=== PATIENT | female | born 1940 | race Caucasian/White ===

== ENCOUNTER 2025-02-28 21:50 | Inpatient (IN) ==
--- NOTE | 2025-02-28 22:15 | Emergency Department Note ---
Impression & Plan Babesiosis, Generalized weakness, Fever ED Provider Note CHIEF COMPLAINT: "I think she has a UTI" HISTORY OF PRESENT ILLNESS: This 84-year-old female patient with PMH pneumonia, thrombocytopenia, nonalcoholic cirrhosis, SHARRON, dementia, presents to the emergency department via private vehicle accompanied by who provides history. The patient woke up this morning and has been very fatigued throughout the day. Patient's states that she had some water this morning that she threw up. He notes at lunchtime, she was not hungry and she has been sleeping throughout most of the day. He states that she has not had anything to eat or really much to drink throughout the day. She did tried some dinner but ate only a small amount. He states that her urine is very concentrated and dark and he is concerned she may have a urinary tract infection. Patient denies any abdominal or back pain. She denies any current symptoms, though does have a history of dementia at baseline. Patient does have a history of CHF and is currently on furosemide. 2 days ago, she did fall and landed on her left knee which is very bruised. Patient's states he believes she fell out of bed because the bed was elevated. Patient had a fever of 100.8 F this evening. She has not had diarrhea or constipation. No congestion or runny nose. She has had a cough since pneumonia in December. She is also on 2 L of oxygen at all times since she was ill with pneumonia in December of this year. History provided by: Patient's REVIEW OF SYSTEMS: A 10 system review of systems was performed with positives and pertinent negatives listed in the history of present illness. All other systems were reviewed and are negative. ALLERGIES: Penicillin, latex PHYSICAL EXAM: VITALS: Vitals are noted on the nurse's note and reviewed by myself. GENERAL: This is a 84-year-old female, in no acute distress, nondiaphoretic, well-developed well-nourished. SKIN: Ecchymosis of the anterior left knee with tenderness to palpation. The skin was otherwise without rashes, erythema, edema, or bruising. There is no tenting of the skin. Capillary refill less than 2 seconds. HEAD: Normocephalic atraumatic. EARS: External auditory canals clear, tympanic membranes pearly cummings without erythema or effusion bilaterally. No hemotympanum. Negative clarke sign EYES: Pupils equal round and reactive to light and accommodation. Conjunctivae without injection, sclerae without icterus. Extraocular movements intact. NOSE: Patent, turbinates without inflammation or discharge. No sinus tenderness. MOUTH: Mucous membranes moist. Tonsils are not enlarged. Pharynx without erythema or exudate. Uvula midline. Airway patent. Tongue does not deviate. NECK: Supple without nuchal rigidity. No lymphadenopathy. Cervical spine is nontender. No JVD. HEART: Regular rate and rhythm without murmurs gallops or rubs. LUNGS: Clear to auscultation bilaterally without wheezes, rales or rhonchi. No retractions or accessory muscle use. ABDOMEN: Positive bowel sounds x 4. Soft, nontender, without masses or organomegaly. Pichardo sign negative. No guarding or rebound tenderness. MUSCULOSKELETAL: No muscle atrophy, erythema, or edema noted. Full range of motion without joint tenderness in all extremities. No tenderness to palpation. Normal gait. Strength 5/5 throughout. NEURO: Patient was alert and oriented to person place and time. Normal sensation to light and sharp touch. Deep tendon reflexes 2+ throughout. No focal neurological deficits. An order was placed for continuous threat monitoring analyst. The monitor showed a normal sinus rhythm at a ventricular rate of 89 bpm, per my interpretation. EKG was reviewed by myself and found to be normal sinus rhythm at a rate of 80 beats per minute and per my interpretation reveals no ST elevation or depression. Right bundle branch block. And when compared to previous EKG of 12/24/2024 is without significant change Imaging as interpreted by myself and the radiologist revealed no acute findings, with radiologist interpretation as above. I agree with the radiologist's findings as based upon my independent interpretation. EMERGENCY DEPARTMENT COURSE: The patient was evaluated as above. The patient presents to the emergency department due to concern for possible urinary tract infection. The patient has not had much to eat or drink throughout the day and has not was concerned the urine was concentrated. The patient did had a fever prior to arrival of 100.8 F. Upon arrival, the patient was noted to be hypoxic. She has been on oxygen since diagnosis of pneumonia in December. Patient was afebrile upon arrival. IV access was obtained, labs were drawn. Patient was hydrated with IV fluids. Labs reviewed. Per my interpretation, no concerning leukocytosis. The patient does have a leukopenia of 4.51. Hemoglobin of 9.8 and platelet count of 63,000. This is lower than patient's baseline. I was contacted by the lab that there were suspicions for Babesia on CBC and recommendation made for tick smear and corresponding testing be ordered. Renal, hepatic function and electrolytes without significant abnormality. Troponin is mildly elevated at 15.5. Lactic acid elevated at 3.5. Procalcitonin 0.28. Lipase is 20. Urinalysis with positive leukocyte esterase and bacteria, but does appear to be contaminated specimen. X-rays of the chest as well as the left knee were completed and reviewed by myself radiologist as noted. No acute fracture. No clear evidence of pneumonia. The patient was medicated with IV azithromycin, ceftriaxone, and atovaquone given concern for Babesia, but also to cover for possible respiratory and urine pathogens. Will trend cultures. The patient will be admitted to the [facility] service. Please see hospitalist dictation regarding ongoing management and final disposition of this patient. Case was discussed with the attending physician. I attest that I have personally reviewed the patient medication list. I attest that I have reviewed the patient's blood pressure and it was found to be normal GCS: 15 In the evaluation and treatment of this patient the following differential diagnoses were entertained: Viral syndrome, otitis, pharyngitis, pneumonia, influenza, meningitis, urinary tract infection, sepsis, bacteremia, as well as other pathologies. The chart was completed utilizing [employer] Speech voice recognition software. Grammatical errors, random word insertions, pronoun errors, and incomplete sentences are an occasional consequence of this system due to software limitations, ambient noise, and hardware issues. Any formal questions or concerns about the content, text, or information contained within the body of this dictation should be directly addressed to the provider for clarification. 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 yearly CBC Hyperlipidemia Elevated LFTs Hypothyroid Medical History Type 2 diabetes mellitus Essential thrombocytopenia follows with hematology. yearly CBC Edema of both legs History of COVID-19 History of esophageal dilatation Hx of fall (09/2023) Comminuted fracture of the left humeral head Hyperlipidemia Hypertension denies History of shoulder fracture (09/2023) left- (no surgery/moderate rom) Comminuted fracture of the left humeral head from a fall Arthritis mild Frequent UTI Cirrhosis, non-alcoholic Dysphagia reason for procedure Sleep apnea no device used Hypothyroidism Diabetes mellitus, type 2 Surgical History History of anesthesia reaction slow to wake up History of esophagogastroduodenoscopy (EGD) History of colonoscopy History of tooth extraction (05/29/24) all upper teeth removed week of 05/29/24 History of cataract surgery b/l Hx of cholecystectomy History of knee replacement left Family History Mother Diabetes Grandfather No problems noted. Grandmother Diabetes Denies family history of Ovarian cancer Prostate cancer Myocardial infarction Breast cancer Colorectal cancer Hypertension Social History Smoking Status: Never smoker Second Hand Exposure: No; Do You Dip or Chew Tobacco: No; Hx Alcohol Use: No Hx Substance Use: No Preferred Language: Syriac Communication Ability: Effective Visual Impairment: Limited Hearing Ability: Hard of Hearing Quality Control Microbiology Supervisor Required: No Beliefs That Will Affect Care: None marital status: marital status details: Spouse and son Current Living Situation: Spouse current occupational status: retired How many Children do You have: 3 Feels Safe at Home: Yes Childhood Exposure to Second-Hand Smoke: Yes Diet: regular caffeine: Yes during the past year weight has: remained stable Dental Care, Regularly: Yes Physical Activity Frequency: Does not Exercise Seatbelt Use: always Sunscreen Use: No Do you think of yourself as: straight/heterosexual Sexual Activity: has been sexually active, but not for at least 12 months Gender Identity: Female Assistive Devices: Cane Allergies Allergies Allergy/AdvReac Type Severity Reaction Status Date / Time Penicillins Allergy Intermediate unsure of Verified 02/27/25 10:25 reaction/been a long time latex Allergy Mild skin Verified 02/27/25 10:25 sensitive Home Meds Home Medications Medication Instructions Recorded Confirmed metformin 500 mg tablet 500 mg PO BID 03/02/24 02/28/25 aspirin 81 mg tablet,delayed 81 mg PO QAM 05/16/24 02/28/25 release multivitamin 1 tab PO QAM 06/06/24 02/28/25 omeprazole 40 mg capsule,delayed 40 mg PO QAM 06/06/24 02/28/25 release levothyroxine 50 mcg tablet 50 mcg PO UD 12/24/24 02/28/25 memantine 10 mg tablet 10 mg PO AMHS 02/28/25 02/28/25 Previous Rx's Medication Instructions Recorded lancets 33 gauge (OneTouch Delica #100 ea 05/16/24 Plus Lancet) blood sugar diagnostic (OneTouch #100 ea 05/17/24 Ultra Test strips) pen needle, diabetic 32 gauge x #200 ea 09/18/24/32" (BD Ultra-Fine Ricarda Pen Needle) atorvastatin 40 mg tablet 40 mg PO HS #90 tabs 10/11/24 insulin aspar prot-insulin aspart 42 unit (0.42 mL) subcut BID #30 mL 10/11/24 100 unit/mL (70-30) subcutaneous pen (Novolog Mix 70-30FlexPen U-100) Oxygen Home #1 ea 01/15/25 furosemide 40 mg tablet (Lasix) 20 mg (1/2 x 40 mg) PO DAILY #15 02/27/25 tabs spironolactone 25 mg tablet 25 mg PO DAILY #30 tabs 02/27/25 Results & Data (ED) Vital Signs Vital Signs - 24 hr 02/28/25 21:52 02/28/25 22:03 02/28/25 22:05 Temperature 36.9 C Temperature Source Oral Pulse Rate 89 81 82 Pulse Rate from SpO2 Sensor 82 Respiratory Rate 20 22 Respiratory Effort / Characteristics Non-Labored Spontaneous Respiratory Depth Normal Respiratory Pattern Regular Blood Pressure 128/74 Blood Pressure Mean 92 Pulse Oximetry 89 L 93 Oxygen Delivery Method Room Air Oxygen Flow Rate Sepsis Recent Fever Within 48 Hours Yes Sepsis New/Unexplained Change in Mental Status N/A Sepsis Action Taken by Nursing No Action Required 02/28/25 22:30 02/28/25 22:42 02/28/25 22:48 Temperature Temperature Source Pulse Rate 83 80 78 Pulse Rate from SpO2 Sensor 84 81 77 Respiratory Rate 17 23 21 Respiratory Effort / Characteristics Respiratory Depth Respiratory Pattern Blood Pressure Blood Pressure Mean Pulse Oximetry 95 94 95 Oxygen Delivery Method Oxygen Flow Rate Sepsis Recent Fever Within 48 Hours Sepsis New/Unexplained Change in Mental Status Sepsis Action Taken by Nursing 02/28/25 23:35 02/28/25 23:35 02/28/25 23:36 Temperature Temperature Source Pulse Rate 79 Pulse Rate from SpO2 Sensor 79 Respiratory Rate 21 Respiratory Effort / Characteristics Respiratory Depth Respiratory Pattern Blood Pressure 141/62 H 141/62 H Blood Pressure Mean 100 100 Pulse Oximetry 95 Oxygen Delivery Method Oxygen Flow Rate Sepsis Recent Fever Within 48 Hours Sepsis New/Unexplained Change in Mental Status Sepsis Action Taken by Nursing 03/01/25 00:12 03/01/25 00:27 03/01/25 00:48 Temperature Temperature Source Pulse Rate 83 84 Pulse Rate from SpO2 Sensor Respiratory Rate 23 23 Respiratory Effort / Characteristics Respiratory Depth Respiratory Pattern Blood Pressure 167/80 H 167/80 H 148/69 H Blood Pressure Mean 109 121 95 Pulse Oximetry 95 95 Oxygen Delivery Method Nasal Cannula Nasal Cannula Oxygen Flow Rate 2 2 Sepsis Recent Fever Within 48 Hours Sepsis New/Unexplained Change in Mental Status Sepsis Action Taken by Nursing Laboratory Data 02/28/25 22:11 02/28/25 22:11 Lab Results 02/28/25 02/28/25 03/01/25 Range/Units 22:11 22:17 00:24 WBC 4.51 L (4.8-10.8) K/ul RBC 3.35 L (4.20-5.40) M/uL Hgb 9.8 L (12.0-16.0) g/dl Hct 31.9 L (37.0-47.0) % MCV 95.2 (80.0-100.0) fL MCH 29.3 (25.0-34.0) pg MCHC 30.7 L (32.0-36.0) g/dL RDW Std Deviation 71.4 H (36.4-46.3) fL RDW Coeff of Arsen 20.5 H (11.5-14.5) % Plt Count 63 L (130-400) K/uL MPV 11.6 (9.4-12.4) fL Immature Gran % (Auto) 0.7 % Neut % (Auto) 54.3 % Lymph % (Auto) 28.4 % [place] % (Auto) 14.6 % Eos % (Auto) 1.3 % Baso % (Auto) 0.7 % Neut # (Auto) 2.45 (1.40-6.50) K/uL Lymph # (Auto) 1.28 (1.20-3.40) K/uL [place] # (Auto) 0.66 H (0.11-0.59) K/uL Eos # (Auto) 0.06 (0.00-0.50) K/uL Baso # (Auto) 0.03 (0.00-0.20) K/uL Immature Gran # (Auto) 0.03 (0.01-0.20) K/uL Anisocytosis Present PT 12.1 H (9.0-12.0) Seconds INR 1.1 (0.9-1.1) Sodium 136 (136-145) mmol/L Potassium 3.8 (3.5-5.1) mmol/L Chloride 101 (98-107) mmol/L Carbon Dioxide 29 (21-32) mmol/L Anion Gap 6 (3-11) BUN 17 (6-23) mg/dl Creatinine 1.08 (0.6-1.2) mg/dl Est Cr Clr Drug Dosing Not Reportable eGFR 51.29 BUN/Creatinine Ratio 15.7 (10-20) Glucose 243 H (70-99(Fasting)) mg/dl Lactate 3.5 H* (0.4-2.0) mmol/L Calcium 8.6 (8.6-10.3) mg/dl Total Bilirubin 2.3 H (0.2-1.0) mg/dl AST 36 (13-39) U/L ALT 17 (7-52) U/L Alkaline Phosphatase 82 (34-104) U/L Troponin I High Sens 15.5 H (0-14) pg/ml Total Protein 6.4 (6.0-8.3) gm/dl Albumin 2.9 L (3.4-5.0) gm/dl Globulin 3.5 (2.5-4.0) gm/dl Albumin/Globulin Ratio 0.8 L (0.9-2) Lipase 20 (11-82) U/L Procalcitonin 0.28 (0-0.5) ng/ml Urine Color Dark Yellow Urine Appearance Clear (Clear) Urine pH 5.5 (4.5-7.5) Ur Specific [place] 1.022 (1.000-1.030) Urine Protein Trace H (Negative) Urine Glucose (UA) Negative (Negative) Urine Ketones Trace H (Negative) Urine Blood Negative (Negative) Urine Nitrite Negative (Negative) Urine Bilirubin 1+ H (Negative) Urine Urobilinogen Positive H (Negative) Ur Leukocyte Esterase 1+ H (Negative) Urine WBC (Auto) 0-5 (0-5) /hpf Urine RBC (Auto) 0-2 (0-2) /hpf U Hyaline Cast (Auto) 0-2 (0-2) /lpf U Epithel Cells (Auto) 11-20 H (0-2) /hpf Urine Bacteria (Auto) 1+ H (None Seen) Urine Comment Adenovirus (PCR) Not Detected (NotDetected) Anaplasma Smear See Comment Babesia Smear See Comment A B. pertussis DNA (PCR) Not Detected (NotDetected) B.parapertussis DNA PCR Not Detected (NotDetected) Lyme Disease Screen Negative (Negative) C. pneumoniae DNA (PCR) Not Detected (NotDetected) Coronavirus OC43 (PCR) Not Detected (NotDetected) Coronavirus HKU1 (PCR) Not Detected (NotDetected) Coronavirus 229E (PCR) Not Detected (NotDetected) SARS-CoV-2 (PCR) Not Detected (NotDetected) Coronavirus NL63 (PCR) Not Detected (NotDetected) Human Metapneumovir PCR Not Detected (NotDetected) Influenza Type A (PCR) Not Detected (NotDetected) Influenza Type B (PCR) Not Detected (NotDetected) M. pneumoniae (PCR) Not Detected (NotDetected) Parainfluenza 1 (PCR) Not Detected (NotDetected) Parainfluenza 2 (PCR) Not Detected (NotDetected) Parainfluenza 3 (PCR) Not Detected (NotDetected) Parainfluenza 4 (PCR) Not Detected (NotDetected) RSV (PCR) Not Detected (NotDetected) Entero/Rhino (PCR) Not Detected (NotDetected) Administered Medications Discontinued Medications Atovaquone (Atovaquone 750 Mg/5 Ml Udc) 750 mg PO NOW STA Stop: 03/01/25 00:12 Last Admin: 03/01/25 01:41 Dose: 750 mg Documented By: DEANNE Sodium Chloride (Nss) 1,000 mls @ 999 mls/hr IV .Q1H1M ONE Stop: 02/28/25 23:07 Last Infusion: 03/01/25 01:25 Dose: Infused Documented By: Admin: 02/28/25 22:39 Dose: 999 mls/hr Documented By: JAE Azithromycin (Zithromax) 500 mg in 255 mls @ 127.5 mls/hr IV NOW ONE Stop: 03/01/25 02:10 Last Admin: 03/01/25 02:25 Dose: 127.5 mls/hr Documented By: DEANNE Ceftriaxone Sodium (Rocephin) 1,000 mg in 50 mls @ 100 mls/hr IV NOW STA Stop: 03/01/25 00:40 Last Infusion: 03/01/25 02:30 Dose: Infused Documented By: Admin: 03/01/25 01:41 Dose: 100 mls/hr Documented By: DEANNE Imaging Data Radiologist's Impression: Knee X-Ray 02/28/25 22:07 Exam(s): XR LEFT KNEE, 3 views EXAM: XR Left Knee, 3 Views CLINICAL HISTORY: Reason for exam: left knee pain/bruising, fall. TECHNIQUE: Three views of the left knee. COMPARISON: No relevant prior studies available. FINDINGS: Bones/joints: The patient is status post total knee replacement. No acute fracture. No dislocation. Soft tissues: There is a small knee joint effusion. Vascular calcifications are seen. IMPRESSION: Status post total knee replacement. There is a small knee joint effusion. . Electronically signed by: Star Zuniga MD 03/01/25 00:05 AM Chest X-Ray 02/28/25 22:08 Exam(s): XR CXR 1 VIEW EXAM: XR Chest, 1 View CLINICAL HISTORY: Reason for exam: Fever. TECHNIQUE: Frontal view of the chest. COMPARISON: 02/20/2025. FINDINGS: There is a poor inspiratory effort. The exam is further limited due to patient's body habitus. Lungs: There is prominence of the interstitial markings.. Pleural space: No pleural effusion is seen. No pneumothorax. Heart: The heart is top normal in size.. Mediastinum: There is mild uncoiling of thoracic aorta.. Bones/joints: There are degenerative changes in the shoulders and the spine.. IMPRESSION: Limited exam. There is prominence of the interstitial markings which appears chronic in nature. Findings appears similar to previous exam. Electronically signed by: Star Zuniga MD 03/01/25 00:14 AM Discharge Plan Visit Data Chief Complaint: Fever Stated Complaint: FEVER ED Provider: Kalia Saucedo ED Midlevel Provider: Casie Cabral Discharge Problem: Babesiosis, Generalized weakness, Fever Patient Disposition: Admitted As Inpatient Condition: Good Discharge Instructions Interventions: ED Discharge Assessment Last Done: 03/01/25 01:52
[2025-02-28] MEDS: SODIUM CHLORIDE 0.9% 1,000 ML IV ONE (22:39)
[2025-02-28 22:56] LABS: Alanine Aminotransferase 17 U/L (7-52); Albumin Globulin Ratio 0.8 (0.9-2); Alkaline Phosphatase 82 U/L (34-104); Anion Gap 6 (3-11); Bilirubin,Total 2.3 mg/dl (0.2-1.0); Blood Urea Nitrogen 17 mg/dl (6-23); Calcium 8.6 mg/dl (8.6-10.3); Carbon Dioxide 29 mmol/L (21-32); Chloride 101 mmol/L (98-107); Globulin 3.5 gm/dl (2.5-4.0); Glucose 243 mg/dl (70-99(Fasting)); Lipase 20 U/L (11-82); Potassium 3.8 mmol/L (3.5-5.1); Sodium 136 mmol/L (136-145); Total Protein 6.4 gm/dl (6.0-8.3)
[2025-02-28 23:20] LABS: Chlamydia pneumoniae PCR Not Detected (NotDetected); Coronavirus 229E PCR Not Detected (NotDetected); Coronavirus CoV-2 (COVID19)PCR Not Detected (NotDetected); Coronavirus HKU1 PCR Not Detected (NotDetected); Coronavirus NL63 PCR Not Detected (NotDetected); Coronavirus OC43PCR Not Detected (NotDetected); Human Metapneumovirus PCR Not Detected (NotDetected); Parainfluenza Virus 1 PCR Not Detected (NotDetected); Parainfluenza Virus 2 PCR Not Detected (NotDetected); Parainfluenza Virus 3 PCR Not Detected (NotDetected); Parainfluenza Virus 4 PCR Not Detected (NotDetected); Respiratory Syncytial VirusPCR Not Detected (NotDetected); Rhinovirus/Enterovirus PCR Not Detected (NotDetected)
[2025-02-28 23:22] LABS: Hematocrit (blood only) 31.9 % (37.0-47.0); Hemoglobin 9.8 g/dl (12.0-16.0); Mean Corpuscular Hemoglobin 29.3 pg (25.0-34.0); Mean Corpuscular Volume 95.2 fL (80.0-100.0); Platelet Count 63 K/uL (130-400); RDW Standard Deviation 71.4 fL (36.4-46.3); Red Blood Count 3.35 M/uL (4.20-5.40); White Blood Count 4.51 K/ul (4.8-10.8)
[2025-02-28 23:31] LABS: INR 1.1 (0.9-1.1); Prothrombin Time 12.1 Seconds (9.0-12.0)
[2025-02-28 23:40] LABS: Anisocytosis Present; Immature Granulocytes # (auto) 0.03 K/uL (0.01-0.20); Immature Granulocytes % (auto) 0.7 %
--- NOTE | 2025-03-01 00:06 | XRay Report ---
Exam(s): XR LEFT KNEE, 3 views EXAM: XR Left Knee, 3 Views CLINICAL HISTORY: Reason for exam: left knee pain/bruising, fall. TECHNIQUE: Three views of the left knee. COMPARISON: No relevant prior studies available. FINDINGS: Bones/joints: The patient is status post total knee replacement. No acute fracture. No dislocation. Soft tissues: There is a small knee joint effusion. Vascular calcifications are seen. IMPRESSION: Status post total knee replacement. There is a small knee joint effusion. . Electronically signed by: Star Zuniga MD 03/01/25 00:05 AM
--- NOTE | 2025-03-01 00:16 | XRay Report ---
Exam(s): XR CXR 1 VIEW EXAM: XR Chest, 1 View CLINICAL HISTORY: Reason for exam: Fever. TECHNIQUE: Frontal view of the chest. COMPARISON: 02/20/2025. FINDINGS: There is a poor inspiratory effort. The exam is further limited due to patient's body habitus. Lungs: There is prominence of the interstitial markings.. Pleural space: No pleural effusion is seen. No pneumothorax. Heart: The heart is top normal in size.. Mediastinum: There is mild uncoiling of thoracic aorta.. Bones/joints: There are degenerative changes in the shoulders and the spine.. IMPRESSION: Limited exam. There is prominence of the interstitial markings which appears chronic in nature. Findings appears similar to previous exam. Electronically signed by: Star Zuniga MD 03/01/25 00:14 AM
[2025-03-01 00:35] LABS: Appearance Urine Clear (Clear); Bacteria Urine Automated 1+ (None Seen); Cast Urine Automated 0-2 /lpf (0-2); Glucose Urine UA Negative (Negative); RBC Urine Automated 0-2 /hpf (0-2); WBC Urine Automated 0-5 /hpf (0-5)
--- NOTE | 2025-03-01 01:02 | History & Physical Report ---
Date of Service March 01, 2025 Assessment & Plan (1) Babesiosis: (2) Generalized weakness: (3) Dementia: (4) Gait instability: (5) Type 2 diabetes mellitus: Plan The patient is an 84-year-old female with a past medical history including gait instability, lower extremity edema, SHARRON, history of falls, nonalcoholic cirrhosis, essential thrombocythemia, hyperlipidemia, and hypothyroidism. The patient presents to the emergency department brought in by her in private vehicle. The patient has been very fatigued throughout the day after waking up at a routine time in the morning. He has had difficulty getting her to drink or eat anything, and reports that after she had some water in the morning she threw it up. He reports that she sleeps a lot generally, but slightly more than usual throughout the day today. He notes that her urine is very concentrated and dark, and is concerned he she has a urinary tract infection. The provides most of the HPI and ROS. He reports that she has been more fatigued over the past months. He reports that she is also a bit more confused than usual today. He reports that she had a temperature of 100.8 F at home this evening. She is usually on 2 L of oxygen, since she had been in the hospital from 12/24-12/29/2024 where she was treated for sepsis due to multifocal pneumonia, and enterovirus/rhinovirus infection. She was in [facility] for re[facility] from 12/29-01/14/2025 Babesiosis- Babesiosis smear positive, with antibodies ordered and pending Anaplasmosis smear negative, with antibodies ordered and pending Lyme antibody test negative Ehrlichiosis antibodies pending BioFire respiratory panel negative reports that [place], but are not aware of any tick bites. 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 Ceftriaxone 2 g IV daily, this is added to patient's regimen to help cover possible anaplasmosis, as her had this a few months ago, and her antibody tests are ordered and pending Azithromycin 500 mg IV daily Mepron 750 mg p.o. twice daily The azithromycin and Mepron are chosen specifically to treat babesiosis. Patient is status post 1 L normal saline bolus in the ED Placed on normal saline with KCl 20 mEq at 100 mL/h x 2 L Follow serial CBC with differential, renal function panel and magnesium levels Diabetes mellitus- Glucose 243 on admission Hold NovoLog Mix Placed on Accu-Cheks NovoLog SSI as noted Hold metformin She has had significantly decreased oral intake over the past few months Dehydration- Hold furosemide and spironolactone Status post 1 L normal saline bolus in the ED NSS + KCl 20 mill equivalents at 100 mL/h x 2 L Follow serial labs as noted Chronic hypoxia- reports that she has required oxygen since her hospitalization from 12/24- 12/29/2024 for pneumonia He also reports that she has been fatigued since that time She did undergo rehab at [facility] from 12/29-01/14/2025 Would consult PT/OT when patient is a bit stronger, as would not be surprised if she needs to go to inpatient rehab again after discharge from the hospital Elevated troponin- EKG normal Continue aspirin Initial troponin 15.5 with follow-up pending Not likely a primary cardiac issue Hyperlipidemia- Continue atorvastatin GERD- Continue omeprazole/pantoprazole Hypothyroidism- Continue levothyroxine Dementia- Continue aspirin, and memantine Resuscitation status: DNR/DNI History of Present Illness Chief Complaint: The patient presents to the emergency department brought in by her in private vehicle. The patient has been very fatigued throughout the day after waking up at a routine time in the morning. He has had difficulty getting her to drink or eat anything, and reports that after she had some water in the mo rning she threw it up. He reports that she sleeps a lot generally, but slightly more than usual throughout the day today. He notes that her urine is very concentrated and dark, and is concerned he she has a urinary tract infection. The provides most of the HPI and ROS. He reports that she has been more fatigued over the past months. He reports that she is also a bit more confused than usual today. He reports that she had a temperature of 100.8 F at home this evening. She is usually on 2 L of oxygen, since she had been in the hospital from 12/24-12/29/2024 where she was treated for sepsis due to multifocal pneumonia, and enterovirus/rhinovirus infection. She was in [facility] for rehab from 12/29-01/14/2025 Primary Care Provider: DEVAUGHN Choi The patient is an 84-year-old female with a past medical history including gait instability, lower extremity edema, SHARRON, history of falls, nonalcoholic cirrhosis, essential thrombocythemia, hyperlipidemia, and hypothyroidism. The patient presents to the emergency department brought in by her in private vehicle. The patient has been very fatigued throughout the day after waking up at a routine time in the morning. He has had difficulty getting her to drink or eat anything, and reports that after she had some water in the morning she threw it up. He reports that she sleeps a lot generally, but slightly more than usual throughout the day today. He notes that her urine is very concentrated and dark, and is concerned he she has a urinary tract infection. The provides most of the HPI and ROS. He reports that she has been more fatigued over the past months. He reports that she is also a bit more confused than usual today. He reports that she had a temperature of 100.8 F at home this evening. She is usually on 2 L of oxygen, since she had been in the hospital from 12/24-12/29/2024 where she was treated for sepsis due to multifocal pneumonia, and enterovirus/rhinovirus infection. She was in [facility] for rehab from 12/29-01/14/2025 Allergies Allergy/AdvReac Type Severity Reaction Status Date / Time Penicillins Allergy Intermediate unsure of Verified 02/27/25 10:25 reaction/been a long time latex Allergy Mild skin Verified 02/27/25 10:25 sensitive Home Medications Medication Instructions Recorded Confirmed Type metformin 500 mg tablet 500 mg PO BID 03/02/24 02/28/25 History aspirin 81 mg tablet,delayed 81 mg PO QAM 05/16/24 02/28/25 History release lancets 33 gauge (OneTouch Delica #100 ea 05/16/24 02/28/25 Rx Plus Lancet) blood sugar diagnostic (OneTouch #100 ea 05/17/24 02/28/25 Rx Ultra Test strips) multivitamin 1 tab PO QAM 06/06/24 02/28/25 History omeprazole 40 mg capsule,delayed 40 mg PO QAM 06/06/24 02/28/25 History release pen needle, diabetic 32 gauge x #200 ea 09/18/24 02/28/25 Rx 5/32" (BD Ultra-Fine Ricarda Pen Needle) atorvastatin 40 mg tablet 40 mg PO HS #90 tabs 10/11/24 02/28/25 Rx insulin aspar prot-insulin aspart 42 unit (0.42 mL) subcut BID #30 mL 10/11/24 02/28/25 Rx 100 unit/mL (70-30) subcutaneous pen (Novolog Mix 70-30FlexPen U-100) levothyroxine 50 mcg tablet 50 mcg PO UD 12/24/24 02/28/25 History Oxygen Home #1 ea 01/15/25 02/28/25 Rx furosemide 40 mg tablet (Lasix) 20 mg (1/2 x 40 mg) PO DAILY #15 02/27/25 02/28/25 Rx tabs spironolactone 25 mg tablet 25 mg PO DAILY #30 tabs 02/27/25 02/28/25 Rx memantine 10 mg tablet 10 mg PO AMHS 02/28/25 02/28/25 History Past Med/Surg History Problem List (Updated 03/01/25 @ 02:51 by Santy Roman MD) Generalized weakness Babesiosis Dementia Memory loss Gait instability Shortness of breath Pancytopenia Acute respiratory failure with hypoxia Rhinovirus (Acute) Sepsis Multifocal pneumonia Hypomagnesemia (Acute) Edema of both legs SHARRON (obstructive sleep apnea) Abnormal CT scan, esophagus Closed fracture of left proximal humerus (09/29/23) Comminuted fracture of the left humeral head from a fall History of fall Cirrhosis, nonalcoholic Essential thrombocythemia follows with hematology. yearly CBC Hyperlipidemia Elevated LFTs Hypothyroid Medical History (Updated 03/01/25 @ 02:51 by Santy Roman MD) Type 2 diabetes mellitus Essential thrombocytopenia follows with hematology. yearly CBC Edema of both legs History of COVID-19 History of esophageal dilatation Hx of fall (09/2023) Comminuted fracture of the left humeral head Hyperlipidemia Hypertension denies History of shoulder fracture (09/2023) left- (no surgery/moderate rom) Comminuted fracture of the left humeral head from a fall Arthritis mild Frequent UTI Cirrhosis, non-alcoholic Dysphagia reason for procedure Sleep apnea no device used Hypothyroidism Diabetes mellitus, type 2 Surgical History History of anesthesia reaction slow to wake up History of esophagogastroduodenoscopy (EGD) History of colonoscopy History of tooth extraction (05/29/24) all upper teeth removed week of 05/29/24 History of cataract surgery b/l Hx of cholecystectomy History of knee replacement left Family History Mother Diabetes Grandfather No problems noted. 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 Required: No Beliefs That Will Affect Care: None marital status: marital status details: Spouse and son Current Living Situation: Spouse current occupational status: retired How many Children do You have: 3 Feels Safe at Home: Yes Childhood Exposure to Second-Hand Smoke: Yes Diet: regular caffeine: Yes during the past year weight has: remained stable Dental Care, Regularly: Yes Physical Activity Frequency: Does not Exercise Seatbelt Use: always Sunscreen Use: No Do you think of yourself as: straight/heterosexual Sexual Activity: has been sexually active, but not for at least 12 months Gender Identity: Female Assistive Devices: Cane Review of Systems Review of Systems: Review of systems in HPI primarily provided by her , who brought her to the emergency department night and is in attendance during the examination. Physical Exam Physical Exam: The patient is awake, lethargic, well developed and well nourished, normocephalic and atraumatic, lying in bed and in no acute distress. HEENT--PERRL, EOMI, mucous membranes and oropharynx mildly dry. Neck--supple. No JVD. No bruits. Thyroid normal, trachea midline, no adenopathy. Heart--normal S1 and S2. No murmurs, rubs or gallops. Lungs--clear bilaterally, no respiratory distress, no accessory muscle use. Abdomen--normal bowel sounds and soft. Nontender. Nondistended, no hernias or masses, no organomegaly. Extremities--no cyanosis or clubbing. No edema. Dermatologic--normal skin turgor, normal color, no abnormal lymph nodes, no rash. Neurologic--cranial nerves II through XII grossly intact. Rheumatologic--normal range of motion. Psychiatric--lethargic and fatigued appearing Results & Data Results & Data Vital Signs (Past 12 Hours) Vital Signs Temp Pulse Resp BP Pulse Ox O2 Del Method 02/28/25 23:36 79 21 95 02/28/25 23:35 141/62 H 02/28/25 23:35 141/62 H 02/28/25 22:48 78 21 95 02/28/25 22:42 80 23 94 02/28/25 22:30 83 17 95 02/28/25 22:05 82 02/28/25 22:03 81 22 93 02/28/25 21:52 36.9 C 89 20 128/74 89 L Room Air Laboratory Results Laboratory Results WBC 4.51 K/ul (4.8-10.8) L 02/28/25 22:11 RBC 3.35 M/uL (4.20-5.40) L 02/28/25 22:11 Hgb 9.8 g/dl (12.0-16.0) L 02/28/25 22:11 Hct 31.9 % (37.0-47.0) L 02/28/25 22:11 MCV 95.2 fL (80.0-100.0) 02/28/25 22:11 MCH 29.3 pg (25.0-34.0) 02/28/25 22:11 MCHC 30.7 g/dL (32.0-36.0) L 02/28/25 22:11 RDW Std Deviation 71.4 fL (36.4-46.3) H 02/28/25 22:11 RDW Coeff of Arsen 20.5 % (11.5-14.5) H 02/28/25 22:11 Plt Count 63 K/uL (130-400) L 02/28/25 22:11 MPV 11.6 fL (9.4-12.4) 02/28/25 22:11 Immature Gran % (Auto) 0.7 % 02/28/25 22:11 Neut % (Auto) 54.3 % 02/28/25 22:11 Lymph % (Auto) 28.4 % 02/28/25 22:11 [place] % (Auto) 14.6 % 02/28/25 22:11 Eos % (Auto) 1.3 % 02/28/25 22:11 Baso % (Auto) 0.7 % 02/28/25 22:11 Neut # (Auto) 2.45 K/uL (1.40-6.50) 02/28/25 22:11 Lymph # (Auto) 1.28 K/uL (1.20-3.40) 02/28/25 22:11 [place] # (Auto) 0.66 K/uL (0.11-0.59) H 02/28/25 22:11 Eos # (Auto) 0.06 K/uL (0.00-0.50) 02/28/25 22:11 Baso # (Auto) 0.03 K/uL (0.00-0.20) 02/28/25 22:11 Immature Gran # (Auto) 0.03 K/uL (0.01-0.20) 02/28/25 22:11 Anisocytosis Present 02/28/25 22:11 PT 12.1 Seconds (9.0-12.0) H 02/28/25 22:11 INR 1.1 (0.9-1.1) 02/28/25 22:11 Sodium 136 mmol/L (136-145) 02/28/25 22:11 Potassium 3.8 mmol/L (3.5-5.1) 02/28/25 22:11 Chloride 101 mmol/L (98-107) 02/28/25 22:11 Carbon Dioxide 29 mmol/L (21-32) 02/28/25 22:11 Anion Gap 6 (3-11) 02/28/25 22:11 BUN 17 mg/dl (6-23) 02/28/25 22:11 Creatinine 1.08 mg/dl (0.6-1.2) 02/28/25 22:11 Est Cr Clr Drug Dosing Not Reportable 02/28/25 22:11 eGFR 51.29 02/28/25 22:11 BUN/Creatinine Ratio 15.7 (10-20) 02/28/25 22:11 Glucose 243 mg/dl (70-99(Fasting)) H 02/28/25 22:11 Lactate 2.6 mmol/L (0.4-2.0) H* 03/01/25 02:05 Calcium 8.6 mg/dl (8.6-10.3) 02/28/25 22:11 Total Bilirubin 2.3 mg/dl (0.2-1.0) H 02/28/25 22:11 AST 36 U/L (13-39) 02/28/25 22:11 ALT 17 U/L (7-52) 02/28/25 22:11 Alkaline Phosphatase 82 U/L (34-104) 02/28/25 22:11 Troponin I High Sens 15.5 pg/ml (0-14) H 02/28/25 22:11 Total Protein 6.4 gm/dl (6.0-8.3) 02/28/25 22:11 Albumin 2.9 gm/dl (3.4-5.0) L 02/28/25 22:11 Globulin 3.5 gm/dl (2.5-4.0) 02/28/25 22:11 Albumin/Globulin Ratio 0.8 (0.9-2) L 02/28/25 22:11 Lipase 20 U/L (11-82) 02/28/25 22:11 Procalcitonin 0.28 ng/ml (0-0.5) 02/28/25 22:11 Urine Color Dark Yellow 03/01/25 00:24 Urine Appearance Clear (Clear) 03/01/25 00:24 Urine pH 5.5 (4.5-7.5) 03/01/25 00:24 Ur Specific [place] 1.022 (1.000-1.030) 03/01/25 00:24 Urine Protein Trace (Negative) H 03/01/25 00:24 Urine Glucose (UA) Negative (Negative) 03/01/25 00:24 Urine Ketones Trace (Negative) H 03/01/25 00:24 Urine Blood Negative (Negative) 03/01/25 00:24 Urine Nitrite Negative (Negative) 03/01/25 00:24 Urine Bilirubin 1+ (Negative) H 03/01/25 00:24 Urine Urobilinogen Positive (Negative) H 03/01/25 00:24 Ur Leukocyte Esterase 1+ (Negative) H 03/01/25 00:24 Urine WBC (Auto) 0-5 /hpf (0-5) 03/01/25 00:24 Urine RBC (Auto) 0-2 /hpf (0-2) 03/01/25 00:24 U Hyaline Cast (Auto) 0-2 /lpf (0-2) 03/01/25 00:24 U Epithel Cells (Auto) 11-20 /hpf (0-2) H 03/01/25 00:24 Urine Bacteria (Auto) 1+ (None Seen) H 03/01/25 00:24 Urine Comment 03/01/25 00:24 Adenovirus (PCR) Not Detected (NotDetected) 02/28/25 22:17 Anaplasma Smear See Comment 02/28/25 22:11 Babesia Smear See Comment A 02/28/25 22:11 B. pertussis DNA (PCR) Not Detected (NotDetected) 02/28/25 22:17 B.parapertussis DNA PCR Not Detected (NotDetected) 02/28/25 22:17 Lyme Disease Screen Negative (Negative) 02/28/25 22:11 C. pneumoniae DNA (PCR) Not Detected (NotDetected) 02/28/25 22:17 Coronavirus OC43 (PCR) Not Detected (NotDetected) 02/28/25 22:17 Coronavirus HKU1 (PCR) Not Detected (NotDetected) 02/28/25 22:17 Coronavirus 229E (PCR) Not Detected (NotDetected) 02/28/25 22:17 SARS-CoV-2 (PCR) Not Detected (NotDetected) 02/28/25 22:17 Coronavirus NL63 (PCR) Not Detected (NotDetected) 02/28/25 22:17 Human Metapneumovir PCR Not Detected (NotDetected) 02/28/25 22:17 Influenza Type A (PCR) Not Detected (NotDetected) 02/28/25 22:17 Influenza Type B (PCR) Not Detected (NotDetected) 02/28/25 22:17 M. pneumoniae (PCR) Not Detected (NotDetected) 02/28/25 22:17 Parainfluenza 1 (PCR) Not Detected (NotDetected) 02/28/25 22:17 Parainfluenza 2 (PCR) Not Detected (NotDetected) 02/28/25 22:17 Parainfluenza 3 (PCR) Not Detected (NotDetected) 02/28/25 22:17 Parainfluenza 4 (PCR) Not Detected (NotDetected) 02/28/25 22:17 RSV (PCR) Not Detected (NotDetected) 02/28/25 22:17 Entero/Rhino (PCR) Not Detected (NotDetected) 02/28/25 22:17 Impressions Knee X-Ray 02/28/25 22:07 Exam(s): XR LEFT KNEE, 3 views EXAM: XR Left Knee, 3 Views CLINICAL HISTORY: Reason for exam: left knee pain/bruising, fall. TECHNIQUE: Three views of the left knee. COMPARISON: No relevant prior studies available. FINDINGS: Bones/joints: The patient is status post total knee replacement. No acute fracture. No dislocation. Soft tissues: There is a small knee joint effusion. Vascular calcifications are seen. IMPRESSION: Status post total knee replacement. There is a small knee joint effusion. . Electronically signed by: Star Zuniga MD 03/01/25 00:05 AM Chest X-Ray 02/28/25 22:08 Exam(s): XR CXR 1 VIEW EXAM: XR Chest, 1 View CLINICAL HISTORY: Reason for exam: Fever. TECHNIQUE: Frontal view of the chest. COMPARISON: 02/20/2025. FINDINGS: There is a poor inspiratory effort. The exam is further limited due to patient's body habitus. Lungs: There is prominence of the interstitial markings.. Pleural space: No pleural effusion is seen. No pneumothorax. Heart: The heart is top normal in size.. Mediastinum: There is mild uncoiling of thoracic aorta.. Bones/joints: There are degenerative changes in the shoulders and the spine.. IMPRESSION: Limited exam. There is prominence of the interstitial markings which appears chronic in nature. Findings appears similar to previous exam. 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 G30.1; F02.B18 Dementia type: Alzheimer's Alzheimer's disease onset: late onset Dementia severity: moderate Dementia behavioral or psychological symptom: with other behavioral disturbance Gait instability R26.81 Type 2 diabetes mellitus without complication, with long-term current use of insulin E11.9; Z79.4 Diabetes mellitus meterman insulin use: with meterman use Diabetes mellitus complication status: without complication (3) Dementia Dementia type: Alzheimer's Alzheimer's disease onset: late onset Dementia severity: moderate Dementia behavioral or psychological symptom: with other behavioral disturbance Qualified Code(s): G30.1 - Alzheimer's disease with late onset; F02.B18 - Dementia in other diseases classified elsewhere, moderate, with other behavioral disturbance (5) Type 2 diabetes mellitus Diabetes mellitus meterman insulin use: with nursing home use Diabetes mellitus complication status: without complication Qualified Code(s): E11.9 - Type 2 diabetes mellitus without complications; Z79.4 - detention (current) use of insulin
[2025-03-01] MEDS: ATOVAQUONE 750 MG/5 ML UDC PO STA (01:41)
[2025-03-01] MEDS: cefTRIAXone SODIUM 1,000 MG/50 ML BAG IV STA ×2 (01:41→05:07)
[2025-03-01] MEDS ORDERED: DEXTROSE 50% 50 ML SYRINGE IV PRN (01:51)
[2025-03-01] MEDS ORDERED: GLUCAGON FOR INJ 1 MG VIAL SQ PRN (01:51)
[2025-03-01] MEDS ORDERED: GLUCOSE 10 TAB/TUBE PO PRN (01:51)
[2025-03-01] MEDS ORDERED: ONDANSETRON INJ 2 MG/ML 2 ML VIAL IV PRN (01:51)
[2025-03-01] MEDS ORDERED: cefTRIAXone SODIUM 1,000 MG/50 ML BAG IV STA (01:51)
[2025-03-01] MEDS ORDERED: GLUCOSE 40% GEL 15 GM TUBE PO PRN (01:51)
[2025-03-01] MEDS ORDERED: CARBOHYDRATES FOR HYPOGLYCEMIA PO PRN (01:51)
[2025-03-01] MEDS: AZITHROMYCIN 500 MG/255 ML BAG IV ONE (02:25)
[2025-03-01] MEDS: Nursing to Pharmacy Communication SCH (04:01)
[2025-03-01] MEDS: NSS + 20MEQ KCL 20 MEQ/1,000 ML BAG IV SCH (05:55)
--- NOTE | 2025-03-01 07:23 | Hospitalist Progress Note ---
Date of Service March 01, 2025 Assessment & Plan (1) Babesiosis: (2) Diabetes mellitus: (3) Delirium: (4) Hypothyroid: (5) Hyperlipidemia: Plan Pt is 84-year-old female with a past medical history including gait instability, dementia, lower extremity edema, SHARRON, history of falls, nonalcoholic cirrhosis, essential thrombocythemia, hyperlipidemia, and hypothyroidism presenting with signs of fatigue . # Babesiosis - Babesiosis smear positive, with antibodies ordered and pending - Anaplasmosis smear negative, with antibodies ordered and pending - Lyme antibody test negative - Ehrlichiosis antibodies pending - BioFire respiratory panel negative - Azithromycin 500 mg IV daily - Mepron 750 mg p.o. twice daily - Placed on NSS + KCl 20 mEq at 100 mL/h x 2 L - Follow serial CBC with differential, renal function panel and magnesium levels # Diabetes mellitus -She has had significantly decreased oral intake over the past few months -Stop NovoLog Mix -Placed on Accu-Cheks NovoLog SSI -Hold metformin # Dehydration -Hold furosemide and spironolactone -Status post 1 L normal saline bolus in the ED -NSS + KCl 20 mill equivalents at 100 mL/h x 2 L -Follow serial labs as noted # Chronic hypoxia - reports that she has required oxygen since her hospitalization from 12/24-12/29/2024 for pneumonia -He also reports that she has been fatigued since that time -She did undergo rehab at [facility] [place] from 12/29-01/14/2025 -Incentive Spirometer -Consult PT/OT when patient is a bit stronger, as would not be surprised if she needs to go to inpatient rehab again after discharge from the hospital # Elevated troponin -EKG normal -Continue aspirin -Initial troponin 15.5 -Not likely a primary cardiac issue # Hyperlipidemia -Continue atorvastatin # GERD -Continue omeprazole/pantoprazole # Hypothyroidism -Continue levothyroxine # Dementia -Continue aspirin, and memantine Admission and Anticipated Discharge Date Admission Date: March 01, 2025 Supervising Physician Co-Signing Physician Notes I personally examined the patient and verified all jimenez points of history and exam, discussed case, and agree with decision making with Dr Miles denies complaints - still fairly groggy but waking up more for me around noon than resident physician this AM. also notes she's acting more like herself vitals noted nad heent nc at mmm breathing unlabored no accessory muscles good effort skin no rashes no pallor or icterus neuro no focal deficits babesiosis - appears to be doing sl better. continue azithromycin/atovaquone. continue to follow clinically. follow KOLBY/anemia but anticipate stabilization followed by improvement over time PT/OT eval and treat - may need SNF again DVT proph - SCDs Subjective At bedside today, pt is responding with one to two word responses. No overnight events. Pt does not have any symptoms of pain, fever, or myalgia. Further, there is no abdominal pain with light or heavy touch. On cardiac auscultation, S1 & S2 heard, without gallops, rubs, or murmurs. On respiratory auscultation, vesicular sounds heard. Review of Systems Review of Systems: All systems reviewed & are unremarkable except as noted in HPI & below Physical Exam Constitutional: WD/WN, vitals as above Eyes: PERRL, conjunctivae normal, anicteric sclerae ENMT: external ear and nose normal, oropharynx normal Neck: trachea midline, no thyromegaly Respiratory: normal respiratory effort, lungs clear to auscultation Cardiovascular: RRR, no murmur, no edema Gastrointestinal (Abdomen): normal bowel sounds, soft, nontender, no hepatosplenomegaly Musculoskeletal: no cyanosis or clubbing, extremities motor strength 5/5 Skin: no rashes, warm and dry Psychiatric: Orientation: + guarded Lymphatic: no cervical or axillary lymphadenopathy Results & Data Results & Data Vital Signs (Past 12 Hours) Vital Signs Temp Pulse Pulse Resp BP BP Pulse Ox 03/01/25 05:11 37.1 C 88 20 135/67 92 03/01/25 02:12 88 03/01/25 01:39 37.3 C 03/01/25 00:48 84 23 148/69 H 95 03/01/25 00:27 167/80 H 03/01/25 00:12 83 23 167/80 H 95 02/28/25 23:36 79 21 95 02/28/25 23:35 141/62 H 02/28/25 23:35 141/62 H 02/28/25 22:48 78 21 95 02/28/25 22:42 80 23 94 02/28/25 22:30 83 17 95 02/28/25 22:05 82 02/28/25 22:03 81 22 93 02/28/25 21:52 36.9 C 89 20 128/74 89 L O2 Del Method O2 Flow Rate 03/01/25 05:11 Nasal Cannula 2 03/01/25 02:12 03/01/25 01:39 03/01/25 00:48 Nasal Cannula 2 03/01/25 00:27 03/01/25 00:12 Nasal Cannula 2 02/28/25 23:36 02/28/25 23:35 02/28/25 23:35 02/28/25 22:48 02/28/25 22:42 02/28/25 22:30 02/28/25 22:05 02/28/25 22:03 02/28/25 21:52 Room Air
[2025-03-01 07:46] LABS: Hemoglobin A1C 6.6 % (4.5-5.6)
[2025-03-01] MEDS: INSULIN ASPART PER UNIT CHARGE SC SCH (07:54)
[2025-03-01 08:21] LABS: Hematocrit (blood only) 27.9 % (37.0-47.0); Hemoglobin 8.8 g/dl (12.0-16.0); Mean Corpuscular Hemoglobin 29.6 pg (25.0-34.0); Mean Corpuscular Volume 93.9 fL (80.0-100.0); Platelet Count 60 K/uL (130-400); RDW Standard Deviation 69.0 fL (36.4-46.3); Red Blood Count 2.97 M/uL (4.20-5.40); White Blood Count 4.65 K/ul (4.8-10.8)
[2025-03-01] MEDS: MEMANTINE HCL 10 MG TAB PO SCH (08:28)
[2025-03-01] MEDS: MULTIVITAMIN TAB PO SCH (08:28)
[2025-03-01] MEDS: ASPIRIN 81 MG ECTAB PO SCH (08:28)
[2025-03-01 08:33] LABS: Alanine Aminotransferase 15.0 U/L (7-52); Albumin Globulin Ratio 0.8 (0.9-2); Alkaline Phosphatase 72.0 U/L (34-104); Anion Gap 4.0 (3-11); Bilirubin,Total 2.0 mg/dl (0.2-1.0); Blood Urea Nitrogen 14.0 mg/dl (6-23); Calcium 8.0 mg/dl (8.6-10.3); Carbon Dioxide 29.0 mmol/L (21-32); Chloride 103.0 mmol/L (98-107); Creatinine Clr Calc Pharmacy 54.0 ml/min; Globulin 3.1 gm/dl (2.5-4.0); Glucose 166.0 mg/dl (70-99(Fasting)); INR 1.1 (0.9-1.1); Potassium 4.0 mmol/L (3.5-5.1); Prothrombin Time 12.1 Seconds (9.0-12.0); Sodium 136.0 mmol/L (136-145); Total Protein 5.7 gm/dl (6.0-8.3)
[2025-03-01 08:57] LABS: Immature Granulocytes # (auto) 0.03 K/uL (0.01-0.20); Immature Granulocytes % (auto) 0.6 %; Polychromasia 2+
[2025-03-01] MEDS: ATOVAQUONE 750 MG/5 ML UDC PO SCH (10:28)
--- NOTE | 2025-03-01 10:53 | Electrocardiogram Report ---
Test Reason : Blood Pressure : */* mmHG Vent. Rate : 80 BPM Atrial Rate : 80 BPM P-R Int : 140 ms QRS Dur : 132 ms QT Int : 414 ms P-R-T Axes : -21 -17 16 degrees QTcB Int : 477 ms Normal sinus rhythm Right bundle branch block Abnormal ECG When compared with ECG of 24-Dec-2024 15:36, No significant change was found Confirmed by Yonatan Reeves ([id number]) on 03/01/2025 10:53:27 AM Referred By: REFERRED SELF Confirmed By: Yonatan Reeves
[2025-03-01] MEDS: ACETAMINOPHEN 325 MG TAB PO PRN (12:59)
[2025-03-01] MEDS ORDERED: Nursing to Pharmacy Communication SCH (20:45)
[2025-03-01] MEDS: ATORVASTATIN 40 MG TAB PO SCH (20:50)
[2025-03-01] MEDS ORDERED: LEVOTHYROXINE SODIUM 50 MCG TABLET PO SCH (21:00)
[2025-03-02 00:05] LABS: A calco-baum cmplx NotReported Not Detected (NotDetected); Bact fragilis Not Reported Not Detected (NotDetected); Blood Culture Id Panel See PCR Comment (NotDetected); C auris Not Reported Not Detected (NotDetected); Calbicans Not Reported Not Detected (NotDetected); Candida glabrata Not Reported Not Detected (NotDetected); Candida krusei Not Reported Not Detected (NotDetected); Cneoformans/gatti Not Reported Not Detected (NotDetected); Cparapsilosis Not Reported Not Detected (NotDetected); Ctropicalis Not Reported Not Detected (NotDetected); E cloacae compx Not Reported Not Detected (NotDetected); Efaecalis Not Reported Not Detected (NotDetected); Efaecium Not Reported Not Detected (NotDetected); Enterobacterales Not Reported Not Detected (NotDetected); Escherichia coli Not Reported Not Detected (NotDetected); H influenzae Not Reported Not Detected (NotDetected); K aerogenes Not Reported Not Detected (NotDetected); Koxytoca Not Reported Not Detected (NotDetected); Kpneumoniae grp Not Reported Not Detected (NotDetected); Lmonocyt Not Reported Not Detected (NotDetected); N meningitidis Not Reported Not Detected (NotDetected); P aeruginosa Not Reported Not Detected (NotDetected); Proteus spp Not Reported Not Detected (NotDetected); Salmonella spp Not Reported Not Detected (NotDetected); Staph lugdunensis Not Reported Not Detected (NotDetected); Staph spp. Not Reported DETECTED (NotDetected); Staphaureus Not Reported Not Detected (NotDetected); Staphepi Not Reported DETECTED (NotDetected); Staphylococcus spp. DETECTED (NotDetected); Stenmaltophilia Not Reported Not Detected (NotDetected); Strep agal(GrpB) Not Reported Not Detected (NotDetected); Strep pneum Not Reported Not Detected (NotDetected); Strep pyog (GrpA) Not Reported Not Detected (NotDetected); Strep spp Not Reported Not Detected (NotDetected); mecAC Resistant Gene DETECTED (NotDetected)
[2025-03-02 00:13] LABS: Staphylococcus epidermidis DETECTED (NotDetected)
[2025-03-02] MEDS: AZITHROMYCIN 500 MG/255 ML BAG IV SCH (02:40)
[2025-03-02] MEDS: LEVOTHYROXINE SODIUM 50 MCG TABLET PO SCH (05:44)
[2025-03-02] MEDS ORDERED: cefTRIAXone SODIUM 2,000 MG/50 ML BAG IV SCH (06:00)
[2025-03-02 07:09] LABS: Hematocrit (blood only) 29.2 % (37.0-47.0); Hemoglobin 9.4 g/dl (12.0-16.0); Mean Corpuscular Hemoglobin 29.9 pg (25.0-34.0); Mean Corpuscular Volume 93.0 fL (80.0-100.0); Platelet Count 71 K/uL (130-400); RDW Standard Deviation 69.4 fL (36.4-46.3); Red Blood Count 3.14 M/uL (4.20-5.40); White Blood Count 4.49 K/ul (4.8-10.8)
[2025-03-02 08:08] LABS: Acanthocytes 1+; Anisocytosis Present; Immature Granulocytes # (auto) 0.02 K/uL (0.01-0.20); Immature Granulocytes % (auto) 0.4 %; Ovalocytes 1+; Polychromasia 2+
--- NOTE | 2025-03-02 09:58 | Hospitalist Progress Note ---
Date of Service March 02, 2025 Assessment & Plan (1) Babesiosis: (2) Diabetes mellitus: (3) Delirium: (4) Hypothyroid: (5) Hyperlipidemia: Plan Pt is 84-year-old female with a past medical history including gait instability, dementia, lower extremity edema, SHARRON, history of falls, nonalcoholic cirrhosis, essential thrombocythemia, hyperlipidemia, and hypothyroidism presenting with signs of fatigue . # Babesiosis - Babesiosis smear positive, with antibodies ordered and pending - Anaplasmosis smear negative, with antibodies ordered and pending - Lyme antibody test negative - Ehrlichiosis antibodies pending - BioFire respiratory panel negative - Azithromycin 500 mg IV daily - Mepron 750 mg p.o. twice daily - Placed on NSS + KCl 20 mEq at 100 mL/h x 2 L - Follow serial CBC with differential, renal function, magnesium levels # Diabetes mellitus -She has had significantly decreased oral intake over the past few months -Stop NovoLog Mix -Placed on Accu-Cheks NovoLog SSI -Hold metformin # Dehydration -Hold furosemide and spironolactone -Status post 1 L normal saline bolus in the ED -NSS + KCl 20 mill equivalents at 100 mL/h x 2 L -Follow serial labs as noted # Chronic hypoxia - reports that she has required oxygen since her hospitalization from 12/24-12/29/2024 for pneumonia -He also reports that she has been fatigued since that time -She did undergo rehab at [facility] from 12/29-01/14/2025 -Incentive Spirometer -Consult PT/OT when patient is a bit stronger, as would not be surprised if she needs to go to inpatient rehab again after discharge from the hospital # Elevated troponin -EKG normal -Continue aspirin -Initial troponin 15.5 -Not likely a primary cardiac issue # Hyperlipidemia -Continue atorvastatin # GERD -Continue omeprazole/pantoprazole # Hypothyroidism -Continue levothyroxine # Dementia -Continue aspirin, and memantine Admission and Anticipated Discharge Date Admission Date: March 01, 2025 Supervising Physician Co-Signing Physician Notes I personally examined the patient and verified all jimenez points of history and exam, discussed case, and agree with decision making with Dr Miles More awake and alert, acting even more like herself. Has not really been up much yet. Updated . vitals noted nad heent nc at mmm breathing unlabored no accessory muscles good effort skin no rashes no pallor or icterus neuro no focal deficits babesiosis - Clearly improving. continue azithromycin/atovaquone. continue to follow clinically. PT/OT eval and treat - may need SNF again; awaiting input, informed . He expresses understanding. DVT proph - SCDs Subjective At bedside today, pt's understanding and verbal responses have improved with 2 to 3 word responses. No overnight events. Pt does not have any symptoms of pain, fever, or myalgia. No difficulty urinating or stooling. Review of Systems Review of Systems: All systems reviewed & are unremarkable except as noted in HPI & below Physical Exam Constitutional: WD/WN, vitals as above Eyes: PERRL, conjunctivae normal, anicteric sclerae ENMT: external ear and nose normal, oropharynx normal Neck: trachea midline, no thyromegaly Respiratory: normal respiratory effort, lungs clear to auscultation Cardiovascular: RRR, no murmur, no edema Gastrointestinal (Abdomen): normal bowel sounds, soft, nontender, no hepatosplenomegaly Musculoskeletal: no cyanosis or clubbing, extremities motor strength 5/5 Skin: no rashes, warm and dry Psychiatric: A+Ox3, euthymic affect Lymphatic: no cervical or axillary lymphadenopathy Results & Data Results & Data Vital Signs (Past 12 Hours) Vital Signs Temp Pulse Pulse Resp BP BP Pulse Ox 03/02/25 08:56 03/02/25 07:57 37.4 C 71 18 124/66 90 03/02/25 07:15 72 03/02/25 02:49 36.6 C 69 18 150/75 H 93 03/01/25 22:02 36.9 C 69 16 125/61 93 O2 Del Method O2 Flow Rate 03/02/25 08:56 Nasal Cannula 2 03/02/25 07:57 Room Air 03/02/25 07:15 03/02/25 02:49 Nasal Cannula 2 03/01/25 22:02 Nasal Cannula 1
--- NOTE | 2025-03-02 11:53 | Billing Data ---
Date of Service March 02, 2025 Coding Level of Care Code 34345 SUB INP/OBS CARE 3MIN
[2025-03-02 12:04] LABS: Anion Gap -1.0 (3-11); Calcium 8.1 mg/dl (8.6-10.3); Carbon Dioxide 30.0 mmol/L (21-32); Chloride 104.0 mmol/L (98-107); Magnesium 1.6 mg/dl (1.7-2.4); Potassium 4.1 mmol/L (3.5-5.1); Sodium 133.0 mmol/L (136-145)
[2025-03-02 12:10] LABS: Blood Urea Nitrogen 13.0 mg/dl (6-23); Creatinine Clr Calc Pharmacy 56.1 ml/min; Glucose 196.0 mg/dl (70-99(Fasting))
[2025-03-03 09:46] LABS: Hematocrit (blood only) 30.3 % (37.0-47.0); Hemoglobin 9.4 g/dl (12.0-16.0); Mean Corpuscular Hemoglobin 28.9 pg (25.0-34.0); Mean Corpuscular Volume 93.2 fL (80.0-100.0); Platelet Count 73 K/uL (130-400); RDW Standard Deviation 68.5 fL (36.4-46.3); Red Blood Count 3.25 M/uL (4.20-5.40); White Blood Count 5.20 K/ul (4.8-10.8)
[2025-03-03 09:47] LABS: Anion Gap 3.0 (3-11); Blood Urea Nitrogen 11.0 mg/dl (6-23); Calcium 8.1 mg/dl (8.6-10.3); Carbon Dioxide 28.0 mmol/L (21-32); Chloride 101.0 mmol/L (98-107); Creatinine Clr Calc Pharmacy 63.7 ml/min; Glucose 197.0 mg/dl (70-99(Fasting)); Potassium 4.1 mmol/L (3.5-5.1); Sodium 132.0 mmol/L (136-145)
[2025-03-03 10:32] LABS: Immature Granulocytes # (auto) 0.04 K/uL (0.01-0.20); Immature Granulocytes % (auto) 0.8 %; Ovalocytes 1+; Polychromasia 1+
--- NOTE | 2025-03-03 10:36 | Hospitalist Progress Note ---
Date of Service March 03, 2025 Assessment & Plan (1) Babesiosis: (2) Diabetes mellitus: (3) Delirium: (4) Hypothyroid: (5) Hyperlipidemia: Plan Pt is 84-year-old female with a past medical history including gait instability, dementia, lower extremity edema, SHARRON, history of falls, nonalcoholic cirrhosis, essential thrombocythemia, hyperlipidemia, and hypothyroidism presenting with signs of fatigue . # Babesiosis - Babesiosis smear positive, with antibodies ordered and pending - Anaplasmosis smear negative, with antibodies ordered and pending - Lyme antibody test negative - Ehrlichiosis antibodies pending - BioFire respiratory panel negative - Continue Azithromycin 500 mg IV daily - Continue Mepron 750 mg p.o. twice daily - Placed on NSS + KCl 20 mEq at 100 mL/h x 2 L - Follow serial CBC with differential, BMP. # Diabetes mellitus -She has had significantly decreased oral intake over the past few months. -Placed on Accu-Cheks NovoLog SSI. -Hold metformin # Dehydration -Hold furosemide and spironolactone -NSS + KCl 20 mill equivalents at 100 mL/h x 2 L -Follow serial labs as noted # Chronic hypoxia - reports that she has required oxygen since her hospitalization from 12/24-12/29/2024 for pneumonia -He also reports that she has been fatigued since that time -She did undergo rehab at [facility] from 12/29-01/14/2025 -Incentive Spirometer -Consult PT/OT when patient is a bit stronger, as would not be surprised if she needs to go to inpatient rehab again after discharge from the hospital # Elevated troponin -EKG normal -Continue aspirin -Initial troponin 15.5 -Not likely a primary cardiac issue # Hyperlipidemia -Continue atorvastatin # GERD -Continue omeprazole/pantoprazole # Hypothyroidism -Continue levothyroxine # Dementia -Continue aspirin, and memantine Admission and Anticipated Discharge Date Admission Date: March 01, 2025 Subjective At bedside today, pt's understanding and verbal responses have improved but couldn't get her to talk much. No overnight events. Pt does not have any symptoms of pain, fever, or myalgia. No difficulty urinating or stooling. Physical Exam Constitutional: WD/WN, vitals as above Eyes: PERRL, conjunctivae normal, anicteric sclerae ENMT: external ear and nose normal, oropharynx normal Neck: trachea midline, no thyromegaly Respiratory: normal respiratory effort, lungs clear to auscultation Cardiovascular: RRR, no murmur, no edema Gastrointestinal (Abdomen): normal bowel sounds, soft, nontender, no hepatosplenomegaly Musculoskeletal: no cyanosis or clubbing, extremities motor strength 5/5 Skin: no rashes, warm and dry Psychiatric: A+Ox3, euthymic affect Lymphatic: no cervical or axillary lymphadenopathy Results & Data Results & Data Vital Signs (Past 12 Hours) Vital Signs Temp Pulse Pulse Resp BP BP Pulse Ox 03/03/25 07:26 97 H 03/03/25 07:25 36.8 C 90 18 151/73 H 90 03/03/25 03:07 36.5 C 84 18 149/81 H 94 03/02/25 22:56 36.7 C 87 18 146/76 H 93 O2 Del Method O2 Flow Rate 03/03/25 07:26 03/03/25 07:25 Nasal Cannula 1 03/03/25 03:07 Nasal Cannula 2 03/02/25 22:56 Nasal Cannula 2
--- NOTE | 2025-03-03 10:40 | Hospitalist Progress Note ---
Date of Service March 03, 2025 Assessment & Plan Admission and Anticipated Discharge Date Admission Date: March 01, 2025 Results & Data Results & Data Vital Signs (Past 12 Hours) Vital Signs Temp Pulse Pulse Resp BP BP Pulse Ox 03/03/25 07:26 97 H 03/03/25 07:25 36.8 C 90 18 151/73 H 90 03/03/25 03:07 36.5 C 84 18 149/81 H 94 03/02/25 22:56 36.7 C 87 18 146/76 H 93 O2 Del Method O2 Flow Rate 03/03/25 07:26 03/03/25 07:25 Nasal Cannula 1 03/03/25 03:07 Nasal Cannula 2 03/02/25 22:56 Nasal Cannula 2
--- NOTE | 2025-03-03 15:30 | Billing Data ---
Date of Service March 03, 2025 Coding Level of Care Code 96875 SUB INP/OBS CARE MIN
--- NOTE | 2025-03-04 05:45 | XRay Report ---
EXAM: XR chest 1V portable CLINICAL HISTORY: New O2 req, could be aspiration. TECHNIQUE: X-ray image of the chest is obtained in AP portable projection. COMPARISON: 02/28/2025 X-ray. FINDINGS: Poor inspiratory effort. Pulmonary Parenchyma: Mild improvement of the right lower lung zone opacity and obliterated costophrenic angle, with residual mild pleural thickening/effusion. Obliterated left costophrenic angle, likely by a mildly pleural effusion. Heart and Mediastinum: Limited assessment of cardiac size. Bilateral hilar congestion. No mediastinal widening or masses. No hilar or mediastinal lymphadenopathy. 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 No evidence of acute fracture. Soft Tissues: Soft tissues overlying the chest wall are unremarkable. IMPRESSION: 1. Mild improvement of the right lower lung zone opacity and obliterated costophrenic angle, with residual mild pleural thickening/effusion. 2. Mild left pleural effusion/thickening. 3. Otherwise, no significant interval changes. Electronically signed by Baljit Mitchell 03-04-2025 05:45 AM
[2025-03-04] MEDS: ALBUT/IPRATROP 3MG/0.5MG NEB 3 ML VIAL NEB STA (05:56)
[2025-03-04] MEDS: ALBUT/IPRATROP 3MG/0.5MG NEB 3 ML VIAL ONE (05:56)
[2025-03-04] MEDS: OPTIRAY 320 125ml IV ONE (06:47)
[2025-03-04] MEDS: CEFEPIME 2000MG 2,000 MG/20 ML SYR IV SCH (07:06)
[2025-03-04 07:22] LABS: Hematocrit (blood only) 31.4 % (37.0-47.0); Hemoglobin 10.0 g/dl (12.0-16.0); Mean Corpuscular Hemoglobin 29.7 pg (25.0-34.0); Mean Corpuscular Volume 93.2 fL (80.0-100.0); Platelet Count 109 K/uL (130-400); RDW Standard Deviation 68.2 fL (36.4-46.3); Red Blood Count 3.37 M/uL (4.20-5.40); White Blood Count 8.51 K/ul (4.8-10.8)
[2025-03-04 07:45] LABS: Anion Gap 5.0 (3-11); Blood Urea Nitrogen 14.0 mg/dl (6-23); Calcium 8.3 mg/dl (8.6-10.3); Carbon Dioxide 28.0 mmol/L (21-32); Chloride 100.0 mmol/L (98-107); Creatinine Clr Calc Pharmacy 47.9 ml/min; Glucose 225.0 mg/dl (70-99(Fasting)); Potassium 4.2 mmol/L (3.5-5.1); Sodium 133.0 mmol/L (136-145)
[2025-03-04 07:48] LABS: iSTAT Art Bld Gas Base Excess -1.0 meg/L (-9-1.8); iSTAT Art Bld Gas pCO2 Correct 34 mmHg (35-46); iSTAT Art Bld Gas pH Corrected 7.446 (7.35-7.45); iSTAT Arterial Blood Gas pO2 C 67
--- NOTE | 2025-03-04 08:12 | CT Scan Report ---
EXAM: CT angio chest PE protocol CLINICAL HISTORY: PE. TECHNIQUE: Contiguous 3.[address] angiographic images of the chest were acquired with the administration of intravenous contrast. Coronal and sagittal reconstructions were obtained. 118 cc opti 320 was administered intravenously. One of these 3D techniques was utilized: Maximum Intensity Pixel (MIP), 3D Reconstructed Images, Volume Rendered Images, Surface Shaded Rendering. One of the following dose reduction techniques was utilized for this exam: Automated exposure control, adjustment of the mA and/or kV according to patient size, and use of iterative reconstruction. CTDI: 37.5 mGy, DLP: 748.96 mGy-cm. COMPARISON: 03/04/2025 03:24:00 MEASUREMENT AND VERIFICATION ENGINEER CR. FINDINGS: Aorta: The thoracic aorta is normal in caliber. No evidence of aneurysm, dissection, with mild atherosclerotic changes. The aortic arch and descending thoracic aorta are unremarkable. Pulmonary Arteries: Pulmonary arteries are normal in size. No evidence of pulmonary embolism. No stenosis or filling defects. Suboptimal opacification in the pulmonary arteries' distal branches, limited evaluation. Superior Vena Cava (SVC) and Inferior Vena Cava (IVC): Normal opacification and caliber. No evidence of thrombus or obstruction. Mediastinum: No mediastinal mass or lymphadenopathy. Dilated esophagus along its course with an air fluid level and smooth wall thickening, small hiatal hernia was noted. Heart: Cardiomegaly. No pericardial effusion. Lungs: Bilateral basal subsegmental consolidation, atelactasis with diffuse septal lines. No pleural effusion was noted Bones: Bilateral acromioclavicular and glenohumeral osteoarthritic changes with a deformed left humeral neck are still seen. Thoracic Spondylosis. Soft Tissues: Normal appearance of the visualized soft tissues. No abnormal masses or fluid collections. The visualized abdomen showed nodular liver with ascites. A 2.9cm gastric fundus diverticulum was noted. IMPRESSION: 1. No pulmonary embolism, Suboptimal opacification in the pulmonary arteries' distal branches, limited evaluation. 2. Dilated esophagus along its course with an air fluid level. 3. Bilateral basal subsegmental consolidation, atelactasis with diffuse septal lines. Stable causing the obliteration CP angles on X-ray. 4. Mild aortic atherosclerotic changes. Electronically signed by Baljit Mitchell 03-04-2025 08:12 AM
[2025-03-04 09:07] LABS: ALC (manual) 3.40 K/uL (1.2-3.4); ANC (manual) 3.91 K/uL (1.4-6.5); Ovalocytes 1+; Polychromasia 2+
--- NOTE | 2025-03-04 10:50 | Hospitalist Progress Note ---
Date of Service March 04, 2025 Assessment & Plan (1) Babesiosis: (2) Diabetes mellitus: (3) Delirium: (4) Hypothyroid: (5) Hyperlipidemia: Plan Pt is 84-year-old female with a past medical history including gait instability, dementia, lower extremity edema, SHARRON, history of falls, nonalcoholic cirrhosis, essential thrombocythemia, hyperlipidemia, and hypothyroidism presenting with signs of fatigue . #Aspiration pneumonitis/ Aspiration pneumonia: - Sat went down after aspiration and was nebulized was administered cefepime and Methylpred. Now, Sat maintained at 94%10L O2 on oxygen mask. - CTA shows Bilateral basal subsegmental consolidation suggesting aspiration. - Possible cause of aspiration pneumonitis rather than aspiration pneumonia because she clinically got better after the episode. - ABG is normal. - Will monitor her saturation level and worsening symptoms of pneumonia. # Babesiosis - Babesiosis smear positive, with antibodies ordered and pending - Anaplasmosis smear negative, with antibodies ordered and pending - Lyme antibody test negative - Ehrlichiosis antibodies pending - BioFire respiratory panel negative - Continue Azithromycin 500 mg IV daily - Continue Mepron 750 mg p.o. twice daily - Placed on NSS + KCl 20 mEq at 100 mL/h x 2 L - Follow serial CBC with differential, BMP. # Diabetes mellitus -She has had significantly decreased oral intake over the past few months. -Placed on Accu-Cheks NovoLog SSI. -Hold metformin # Dehydration -Hold furosemide and spironolactone -NSS + KCl 20 mill equivalents at 100 mL/h x 2 L -Follow serial labs as noted # Chronic hypoxia - reports that she has required oxygen since her hospitalization from 12/24-12/29/2024 for pneumonia -He also reports that she has been fatigued since that time -She did undergo rehab at [facility] from 12/29-01/14/2025 -Incentive Spirometer -Consult PT/OT when patient is a bit stronger, as would not be surprised if she needs to go to inpatient rehab again after discharge from the hospital # Elevated troponin -EKG normal -Continue aspirin -Initial troponin 15.5 -Not likely a primary cardiac issue # Hyperlipidemia -Continue atorvastatin # GERD -Continue omeprazole/pantoprazole # Hypothyroidism -Continue levothyroxine # Dementia -Continue aspirin, and memantine Admission and Anticipated Discharge Date Admission Date: March 01, 2025 Supervising Physician Co-Signing Physician Notes I personally examined the patient and verified all jimenez points of history and exam, discussed case, and agree with decision making with Dr Cordoba Aspirated earlier this morning. Hypoxic. Seen multiple times throughout the day. Fortunately awake and alert even whenever I first saw her this morning. As the day went on she was calmer and more comfortable and on less and less oxygen. Updated multiple times as well. Vitals noted, in general she is actually awake and more talkative even early this morning than any other time I had seen her, appeared to be in mild respiratory distress, on revisit this afternoon no distress. HEENT normocephalic atraumatic mucous membranes moist. This morning diffuse rales, this afternoon only faint rales on the right side. No accessory muscle use. CT scan noted. Labs noted. Aspiration event and acute hypoxic respiratory failurefortunately improving quite quickly. For now treating as an aspiration pneumonia given the severity of her hypoxia as well as the fever, but if she continues to improve this rapidly, I am suspicious it was simply aspiration pneumonitis and the cefepime might be able to be discontinued in the near future. Babesiosisimproving. Counts improving. On a Zithromax and atovaquonewith aspiration, speech currently has her NPO. Azithromycin is IV. In review of literature as well as discussion with clinical pharmacist cannot really find an alternate regimen that is purely IV. Given that she is showing improvement in her mentation, hopefully she will be able to take the atovaquone again tomorrow, and would continue treatment. If not, may need to reach out to infectious disease for an alternative regimen. Dispositionfor SNF/rehab DVT prophylaxisSCDs Subjective Pt underwent aspiration yesterday at around 10o' clock when trying to swallow pill and oxygen sat. went low and maintained at 94% on 11L in oxygen mask. Pt does not have any symptoms of Sob, pain, fever, or myalgia. No difficulty urinating or stooling. Physical Exam Constitutional: WD/WN, vitals as above Eyes: PERRL, conjunctivae normal, anicteric sclerae ENMT: external ear and nose normal, oropharynx normal Neck: trachea midline, no thyromegaly Respiratory: Breath sound decreased on right side. Cardiovascular: RRR, no murmur, no edema Gastrointestinal (Abdomen): normal bowel sounds, soft, nontender, no hepatosplenomegaly Musculoskeletal: no cyanosis or clubbing, extremities motor strength 5/5 Skin: no rashes, warm and dry Psychiatric: A+Ox3, euthymic affect Lymphatic: no cervical or axillary lymphadenopathy Results & Data Results & Data Vital Signs (Past 12 Hours) Vital Signs Temp Pulse Resp BP Pulse Ox O2 Del Method O2 Flow Rate 03/04/25 08:17 38.3 C H 92 H 24 114/54 L 94 Oxymask 11 03/04/25 07:43 Oxymask 11 03/04/25 06:22 93 H 15 87 L Oxymask 10 03/04/25 05:44 90 Oxymask 9 03/04/25 05:41 90 Oxymask 8 03/04/25 05:40 88 L Nasal Cannula 7 03/04/25 05:40 86 L Nasal Cannula 6 03/04/25 03:48 93 Nasal Cannula 5 03/04/25 03:48 91 Nasal Cannula 4 03/04/25 03:46 36.6 C 83 18 92/59 L 84 L Nasal Cannula 3.5 03/04/25 01:09 37.9 C H 03/03/25 23:41 91 Nasal Cannula 2 03/03/25 23:39 39.2 C H 91 H 18 126/70 93 Room Air 03/03/25 22:59 Room Air Resident Activity Tracking Resident Involvement: Resident Care Provided Care Provided: Adult Hospital Medicine
--- NOTE | 2025-03-04 17:09 | Billing Data ---
Date of Service March 04, 2025 Coding Level of Care Code 91351 SUB INP/OBS CARE MIN
[2025-03-04] MEDS: SODIUM CHLOR 7% 4 ML NEB NEB SCH (19:12)
[2025-03-05 07:17] LABS: Hematocrit (blood only) 30.5 % (37.0-47.0); Hemoglobin 9.4 g/dl (12.0-16.0); Immature Granulocytes # (auto) 0.04 K/uL (0.01-0.20); Immature Granulocytes % (auto) 0.5 %; Mean Corpuscular Hemoglobin 29.7 pg (25.0-34.0); Mean Corpuscular Volume 96.5 fL (80.0-100.0); Platelet Count 83 K/uL (130-400); RDW Standard Deviation 71.8 fL (36.4-46.3); Red Blood Count 3.16 M/uL (4.20-5.40); White Blood Count 7.45 K/ul (4.8-10.8)
[2025-03-05 07:26] LABS: Anion Gap 4.0 (3-11); Calcium 8.4 mg/dl (8.6-10.3); Carbon Dioxide 26.0 mmol/L (21-32); Chloride 103.0 mmol/L (98-107); Potassium 4.3 mmol/L (3.5-5.1); Sodium 133.0 mmol/L (136-145)
[2025-03-05 07:32] LABS: Blood Urea Nitrogen 18.0 mg/dl (6-23); Creatinine Clr Calc Pharmacy 62.4 ml/min; Glucose 281.0 mg/dl (70-99(Fasting))
[2025-03-05 08:02] LABS: Anisocytosis Present; Polychromasia 1+
--- NOTE | 2025-03-05 09:42 | Hospitalist Progress Note ---
Date of Service March 05, 2025 Assessment & Plan (1) Babesiosis: (2) Diabetes mellitus: (3) Delirium: (4) Hypothyroid: (5) Hyperlipidemia: Plan Pt is 84-year-old female with a past medical history including gait instability, dementia, lower extremity edema, SHARRON, history of falls, nonalcoholic cirrhosis, essential thrombocythemia, hyperlipidemia, and hypothyroidism presenting with signs of fatigue . #Aspiration pneumonitis vs Aspiration pneumonia: - aspiration event yesterday, O2 sat decreased - treated with nebulizer, cefepime, and methylpred. Previously on 10L O2 via mask. This morning, saturating well on at 99% on room air. - of note, patient does have history of esophageal dysmotility with previous history of aspiration pneumonia. Was encouraged to follow soft bite diet, noting high aspiration risk. - chest x-ray on admission 02/26-right lower lung zone non-homogenous haziness leaning to consolidative shadows - echo on 01/23 - showed diastolic dysfunction, and moderate mitral annular calcification as noteworthy all other findings unremarkable - CTA shows bilateral basal subsegmental consolidation suggesting aspiration. - Possible cause of aspiration pneumonitis rather than aspiration pneumonia because she clinically got better after the episode. - WBC wnl this morning. Patient remained afebrile. Lungs CTA BL. Saturating well on room air. - ABG is normal. - patient currently NPO per speech evaluation yesterday - will discuss with speech therapy today for repeat evaluation. -can dc Cefepime -esophageal dysmotility precautions given # Babesiosis - patient does seem to be improving since admission. Well-appearing today. Febrile yesterday, however seems to be resolving. Blood parasite count still positive. - Babesiosis smear positive, with antibodies ordered and pending - Anaplasmosis smear negative, with antibodies ordered and pending - Lyme antibody test negative - Ehrlichiosis antibodies pending - [employer] respiratory panel negative - Continue Azithromycin 500 mg IV daily - atovaquone 750 mg p.o. twice daily -- holding for now, as patient is NPO. Will discuss with speech, as stated above, for repeat evaluation with hope to resume oral medications. If needed, will discussed with ID for alternative therapy. - Follow serial CBC with differential, BMP. Check LFTs, LDH. # Diabetes mellitus - she has had significantly decreased oral intake over the past few months. - placed on Accu-Cheks NovoLog SSI. - POC glucose 285 - likely in the setting or recent steroid administration yesterday. - home metformin on hold # Dehydration -Hold furosemide and spironolactone -NSS + KCl 20 mill equivalents at 100 mL/h x 2 L -Follow serial labs as noted # Hyponatremia - likely pseudohyponatremia in the setting of elevated glucose -- POC glucose 285 - not currently on maintenance fluids at this time - will continue to check BMP daily # Hypomagnesemia - Mg 1.6 on admission - has not been rechecked. Plan to repeat. # ADAN - LFTs completed 03/01/25, wnl at the time - have not been trending. Will plan to repeat LFTs, ammonia level - Following with GI outpatient. - avoid NSAIDs, hepatotoxic drugs, less than 2G acetaminophen daily - Low NA diet, less than 2G daily # Chronic hypoxia - reports that she has required oxygen since her hospitalization from 12/24-12/29/2024 for pneumonia -He also reports that she has been fatigued since that time -She did undergo rehab at [facility] from 12/29-01/14/2025 -Incentive Spirometer -Consult PT/OT when patient is a bit stronger, as would not be surprised if she needs to go to inpatient rehab again after discharge from the hospital # Elevated troponin - elevated troponin 15.5 on admission; EKG normal w/o ischemic changes - on aspirin 81 mg at home - currently hold due to NPO status - likely not a result of an ischemic cardiac event, but rather from myocardial demand ischemia from acute illness-- denies chest pain, palpitations, SOB. # Hyperlipidemia - atorvastatin hold - NPO # GERD - hold omeprazole/pantoprazole - NPO # Hypothyroidism - TSH 12/2024 - 1.41 - continue levothyroxine 50mcg daily - hold NPO # Dementia - hold aspirin and memantine - NPO Admission and Anticipated Discharge Date Admission Date: March 01, 2025 Supervising Physician Co-Signing Physician Notes I personally examined the patient and verified all jimenez points of history and exam, discussed case, and agree with decision making with Dr. Patel with the following additions/exceptions: S-Pt feeling better today. Has some gurgling up of liquids after eating with Speech tx today-discussed esophageal dysmotility and precautions. O- Vitals Reviewed Gen: AAOx2, NAD HEENT: Anicteric sclerae, EOMI CV: RRR no mgr nl S1S2 Pulm: Bibasilar crackles, no rhonchi or wheezing Abd: +BS soft NT ND Ext: 1+ pitting edema legs bilaterally to the knees Skin: Chronic venous stasis changes of the legs bilaterally CBC, BMP, magnesium reviewed A/P: 84-year-old female with a history of SHARRON not on CPAP, chronic hypoxic respiratory failure, hypothyroidism, ADAN, thrombocytopenia, HLD, falls, esoph ageal dysmotility, here with acute infection with babesiosis as well as aspiration event with pneumonitis and acute on chronic respiratory failure with hypoxemia. - Improving from aspiration, weaned to home O2 requirement, still some crackles. Appreciate speech therapy repeat evaluation-cleared for soft small bite diet with aspiration precautions and esophageal dysmotility precautions. Can disco ntinue cefepime. - Continue atovaquone and azithromycin, follow-up parasitemia levels, consider ID consult, remains afebrile and clinically improving Subjective A&Ox3 at bedside this morning. No acute events overnight. Patient did have episode of aspiration yesterday when trying to swallow pill. Denies chest pain, SOB, fever/chills this morning. Well-appearing, no acute distress. Denies any new or worsening pain. Review of Systems Review of Systems: All systems reviewed & are unremarkable except as noted in HPI & below Results & Data Results & Data Vital Signs (Past 12 Hours) Vital Signs Temp Pulse Pulse Resp BP BP Pulse Ox 03/05/25 08:17 36.4 C L 65 20 115/69 99 03/05/25 07:44 03/05/25 07:19 67 16 95 03/05/25 03:38 36.6 C 63 18 102/65 94 03/04/25 23:55 36.6 C 61 18 133/61 94 03/04/25 21:44 63 O2 Del Method O2 Flow Rate 03/05/25 08:17 Room Air 03/05/25 07:44 Room Air 03/05/25 07:19 Nasal Cannula 2 03/05/25 03:38 Nasal Cannula 2 03/04/25 23:55 Room Air 03/04/25 21:44
[2025-03-05 12:30] LABS: Magnesium 1.8 mg/dl (1.7-2.4)
--- NOTE | 2025-03-05 15:13 | Billing Data ---
Date of Service March 05, 2025 Coding Level of Care Code 55926 SUB INP/OBS CARE MIN
[2025-03-06] MEDS ORDERED: ATOVAQUONE 750 MG/5 ML UDC PO SCH ×2
[2025-03-06 07:56] LABS: Hematocrit (blood only) 29.8 % (37.0-47.0); Hemoglobin 9.2 g/dl (12.0-16.0); Mean Corpuscular Hemoglobin 29.0 pg (25.0-34.0); Mean Corpuscular Volume 94.0 fL (80.0-100.0); Platelet Count 112 K/uL (130-400); RDW Standard Deviation 70.2 fL (36.4-46.3); Red Blood Count 3.17 M/uL (4.20-5.40); White Blood Count 7.25 K/ul (4.8-10.8)
[2025-03-06 08:07] LABS: Alanine Aminotransferase 20.0 U/L (7-52); Alkaline Phosphatase 73.0 U/L (34-104); Anion Gap 4.0 (3-11); Bilirubin,Total 1.9 mg/dl (0.2-1.0); Blood Urea Nitrogen 18.0 mg/dl (6-23); Calcium 8.4 mg/dl (8.6-10.3); Carbon Dioxide 28.0 mmol/L (21-32); Chloride 103.0 mmol/L (98-107); Creatinine Clr Calc Pharmacy 55.3 ml/min; Glucose 204.0 mg/dl (70-99(Fasting)); Potassium 4.0 mmol/L (3.5-5.1); Sodium 135.0 mmol/L (136-145); Total Protein 5.7 gm/dl (6.0-8.3)
[2025-03-06 08:44] LABS: Immature Granulocytes # (auto) 0.05 K/uL (0.01-0.20); Immature Granulocytes % (auto) 0.7 %; Polychromasia 1+; Toxic Vacuolation 1+
--- NOTE | 2025-03-06 09:50 | Discharge Summary ---
Date of Service March 06, 2025 Admission HPI Per Admitting Provider The patient is an 84-year-old female with a past medical history including gait instability, lower extremity edema, SHARRON, history of falls, nonalcoholic cirrhosis, essential thrombocythemia, hyperlipidemia, and hypothyroidism. The patient presents to the emergency department brought in by her in private vehicle. The patient has been very fatigued throughout the day after waking up at a routine time in the morning. He has had difficulty getting her to drink or eat anything, and reports that after she had some water in the morning she threw it up. He reports that she sleeps a lot generally, but slightly more than usual throughout the day today. He notes that her urine is very concentrated and dark, and is concerned he she has a urinary tract infection. The provides most of the HPI and ROS. He reports that she has been more fatigued over the past months. He reports that she is also a bit more confused than usual today. He reports that she had a temperature of 100.8 F at home this evening. She is usually on 2 L of oxygen, since she had been in the hospital from 12/24-12/29/2024 where she was treated for sepsis due to multifocal pneumonia, and enterovirus/rhinovirus infection. She was in [facility] assisted for rehab from 12/29-01/14/2025 Admission Exam Per Admitting Provider The patient is awake, lethargic, well developed and well nourished, normocephalic and atraumatic, lying in bed and in no acute distress. HEENT--PERRL, EOMI, mucous membranes and oropharynx mildly dry. Neck--supple. No JVD. No bruits. Thyroid normal, trachea midline, no adenopathy. Heart--normal S1 and S2. No murmurs, rubs or gallops. Lungs--clear bilaterally, no respiratory distress, no accessory muscle use. Abdomen--normal bowel sounds and soft. Nontender. Nondistended, no hernias or masses, no organomegaly. Extremities--no cyanosis or clubbing. No edema. Dermatologic--normal skin turgor, normal color, no abnormal lymph nodes, no rash. Neurologic--cranial nerves II through XII grossly intact. Rheumatologic--normal range of motion. Psychiatric--lethargic and fatigued appearing Principal Diagnosis Babesiosis Discharge Exam Constitutional WD/WN, vitals as above Eyes PERRL, conjunctivae normal, anicteric sclerae ENMT external ear and nose normal, oropharynx normal Neck trachea midline, no thyromegaly Respiratory normal respiratory effort, lungs clear to auscultation Cardiovascular RRR, no murmur, no edema Gastrointestinal (Abdomen) normal bowel sounds, soft, nontender, no hepatosplenomegaly Musculoskeletal no cyanosis or clubbing, extremities motor strength 5/5 Extremities: extremities normal to inspection Skin no rashes, warm and dry Neurologic no focal neurological deficits Psychiatric A+Ox3, euthymic affect Discharge Data Allergies Allergy/AdvReac Type Severity Reaction Status Date / Time Penicillins Allergy Intermediate unsure of Verified 02/27/25 10:25 reaction/been a long time latex Allergy Mild skin Verified 02/27/25 10:25 sensitive Consultations 03/01/25 00:59 ED Decision to Admit Stat Ordered Studies 03/04/25 06:28 CT angio chest PE protocol Stat Hospital Course (1) Babesiosis: (2) Diabetes mellitus: (3) Delirium: (4) Hypothyroid: (5) Hyperlipidemia: Plan Pt is 84-year-old female with a past medical history including gait instability, dementia, lower extremity edema, SHARRON, history of falls, nonalcoholic cirrhosis, essential thrombocythemia, hyperlipidemia, and hypothyroidism presenting with signs of fatigue . #Babesiosis Patient initially presented to ED with fatigue in the setting of anemia. Tick- borne disease screening were completed and found to be positive for Babesia. Treated with azithromycin and atovaquone with a goal total treatment course of 10 days. Well-appearing today, remains afebrile and without leukocytosis. Blood parasite count pending at this time. Anaplasmosis, Ehrlichiosis, and Lyme testing completed and negative. Will plan to continue azithromycin and atovaquone to complete treatment outpatient x 10 days total as patient is clinically improving and stable. #Aspiration pneumonitis #Esophageal dysmotility Had aspiration event 03/04/25 when swallowing a pill; O2 sat decreased - treated with nebulizer, cefepime, and methylpred. Sats continued to improve after treatment, continues to be 96% on 2L NC. at bedside and reports patient has oxygen at home that she uses intermittently. CTA performed after aspiration event showing bilateral basal subsegmental consolidation suggesting aspiration. [employer] evaluation noting high aspiration risk due to severe esophageal dysmotility. Encouraged to follow small soft bite diet. CXR completed on admission showing right lower lung zone non-homogenous haziness leaning to consolidative shadows Echo on 01/23 - showed diastolic dysfunction, and moderate mitral annular calcification as noteworthy all other findings unremarkable #Diabetes mellitus BGs have been elevated since admission; home metformin was held and managed with sliding scale insulin. Of note, patient did receive steroid therapy for her aspiration event, which can be contributing to the elevated BGs. On discharge, can continue home metformin and Novolog # Dehydration Improving since admission. Kidney function remains at baseline; does not appear to be volume depleted on exam this morning. Electrolytes stable, nonactionable. Can resume home furosemide and spironolactone on discharge. # Hyponatremia Improving (132 -> 135); this was likely pseudohyponatremia in the setting of elevated glucose. Encouraged to check BMP outpatient and follow with PCP. - not currently on maintenance fluids at this time # Hypomagnesemia Improving (1.4 -> 1.8); Plan to repeat as outpatient # ADAN - LFTs completed and nonactionable. Total bilirubin mildly elevated but improved from previous, AST 35. ALT 20. ALP 73. Of note, LDH is elevated 339. Following with GI as outpatient. Encourage to keep regular appointments with GI physician. Avoid NSAIDs, hepatotoxic drugs, less than 2G acetaminophen daily. Low NA diet, less than 2G daily # Chronic hypoxia at bedside reporting she has required oxygen at home since her hospitalization from 12/24-12/29/2024 for pneumonia. Uses 2L O2 as needed at home at this time. After aspiration event, saturations decreased however now appears at her baseline of 2L NC. Evaluated by PT who notes that patient dropped to 83- 85% while walking. She underwent a 2-step walk test with RT before discharge to evaluate home oxygen requirements and needs 2 L nasal cannula O2 at all times. Encouraged incentive spirometry outpatient. # Elevated troponin Elevated troponin 15.5 on admission; EKG normal w/o ischemic changes. Not likely a result of an ischemic cardiac event. Asymptomatic throughout hospital admission. Continue home aspirin 81 mg. # Hyperlipidemia continue home atorvastatin # GERD continue omeprazole/pantoprazole # Hypothyroidism TSH 12/2024 wnl - 1.41. Continue levothyroxine 50mcg daily. # Dementia - continue home aspirin and memantine DVT prophylaxis-SCDs Disposition-discharge to home with home health Total Time Total Time Spent Total Time Spent (In Minutes): 45 Total Time Includes: Examination of the Patient, Discharge Planning and Medication Reconciliation Discharge Plan Discharge Items Patient Disposition: Home - Home Health Services Reason For Visit: WEAKNESS, CONFUSION, BABESIOSIS Discharge Diagnosis: Babesiosis aspiration pneumonitis Condition on Discharge: Good Activity: Resume your previous activity Non-emergency contact: Primary Care Provider Call non-emergency contact if: you have any medication questions and your symptoms worsen Follow-up/Referrals: Donna Mckeon CRNP [Primary Care Provider] - 03/13/25 1:30 pm Diet: Other - See Diet Comment Addtl Attending Provider Instructions: You were admitted to the hospital for Babesiosis infection, which is a tick- borne disease. You were treated with azithromycin and atovaquone. A prescription has been sent to your pharmacy, please continue these antibiotics for 5 more days. While in the hospital, you also had an aspiration event because of trouble swallowing. Please see the diet recommendations below to help avoid further events in the future. Please continue following with your PCP for lab work and management of your chronic issues. A discharge summary will be sent to your primary care physician to ensure continuity of care. Please bring this discharge summary with you to your next office appointment so that your provider can review it at that time. Medications: Your medication list has been reviewed and reconciled upon discharge to ensure a ccuracy and continuity of care. An updated list of all your medications is included with your hospital discharge paperwork. Please review this list closely and make note of any changes to your medications. Follow up appointments: - Make a follow up appointment with your PCP within the next week. It is very important that you follow up with them shortly after discharge from the hospital. - Keep all of your follow up appointments as already scheduled. If you cannot make an appointment, notify your provider. CONTACT YOUR PRIMARY CARE PROVIDER if you experience any of the following: - Difficulty following your treatment plan - Difficulty taking any of your medications CALL 911 OR GO TO THE EMERGENCY DEPARTMENT if you experience any of the following: - Sudden, severe abdominal pain or nausea/vomiting - Severe chest pain or chest pain that radiates to your jaw or arm - Sudden, severe shortness of breath or difficulty breathing Diet Recommendations: 1. Resume Soft Bite Size IDDSI 6 (dental soft ) diet. Avoid foods that are dry, thick, pasty, and doughy. Add condiments of choice to foods (such as extra sauce/gravy/ butter etc) to assist in keeping food moist. 2. Aspiration and Reflux precautions as outlined (alt= alternate, HOB= head of the bed) 3. Mouth care: Clean all surfaces of the mouth and tongue twice a day (at minimum ). This will reduce the amount of oral bacteria contained in saliva that can contribute to the development of aspiration pneumonia Pending Studies at Discharge: No Stand-Alone Forms: My [facility], Smoking Cessation Medications and DC Order Prescriptions: New atovaquone [Mepron] 750 mg/5 mL Suspension 750 mg PO Q12H 5 Days Qty: 50 0RF azithromycin 500 mg tablet 500 mg PO DAILY 5 Days Qty: 5 0RF Continued (DME) OneTouch Ultra Test Strip See Rx Instructions .Route Qty: 100 3RF Rx Instructions: check blood sugar BID spironolactone 25 mg tablet 25 mg PO DAILY Qty: 30 2RF Rx Instructions: take along with 1/2 tablet of lasix 40mg for 2 weeks, then STOP lasix and just continue spironolactone daily furosemide [Lasix] 40 mg tablet 20 mg PO DAILY Qty: 15 3RF Rx Instructions: decrease to 1/2 tablet daily aspirin 81 mg tablet,delayed release (DR/EC) 81 mg PO QAM (DME) lancets [OneTouch Delica Plus Lancet] 33 gauge misc See Rx Instructions .Route Qty: 100 2RF Rx Instructions: check blood sugar twice a day (DME) pen needle, diabetic [BD Ultra-Fine Ricarda Pen Needle] 32 gauge x 5/32" needle See Rx Instructions .Route Qty: 200 3RF Rx Instructions: use with insulin injections BID (DME) Oxygen Home Liters Per Minute See Rx Instructions .Route Qty: 1 0RF Rx Instructions: As directed metformin 500 mg tablet 500 mg PO BID atorvastatin 40 mg tablet 40 mg PO HS Qty: 90 3RF insulin asp prt-insulin aspart [Novolog Mix 70-30FlexPen U-100] 100 unit/mL (70-30) insulin pen 42 unit subcut BID Qty: 30 3RF Patient Comments: Patient's states she took a "half dose" Rx Instructions: Inject 42 units twice daily. multivitamin Tablet 1 tab PO QAM omeprazole 40 mg capsule,delayed release(DR/EC) 40 mg PO QAM levothyroxine 50 mcg tablet 50 mcg PO UD Rx Instructions: original: 50mcg po hs. Last filled 09/18/24 90 day supply memantine 10 mg tablet 10 mg PO [facility] Rx Instructions: Start with ONE pill once a day for ONE month, then increase to ONE pill morning and night thereafter Discharge Orders: Discharge Order (Routine); Ordered 03/06/25 Ordered By: America Cedeño/Other Patient Handouts: Managing Type 2 Diabetes Admission Data Admit Date/Time: 03/01/25 01:02 Attending Provider: Kimberly Knowles Admit Provider: Santy Romna Primary Care Provider: Donna Mckeon Other Providers: Santy Roman; [facility],Home Health Other Interventions: Discharge Summary Assessment (RN) Last Done: 03/06/25 12:36 Supervising Physician Co-Signing Physician Notes I personally examined the patient and verified all jimenez points of history and exam, discussed case, and agree with decision making with with the following additions/exceptions: S-patient improved. Continues to have significant reflux of food after eating sticky foods in particular. Remains afebrile for over 48 hours, overall improved and ready for discharge O- Vitals Reviewed Gen: AAOx2, NAD HEENT: Anicteric sclerae, EOMI CV: RRR no mgr nl S1S2 Pulm: Crackles at bases bilaterally, no labored breathing Ext: Trace pitting edema legs bilaterally CBC, BMP reviewed A/P: 84-year-old female with a history of SHARRON not on CPAP, chronic hypoxic respiratory failure, hypothyroidism, ADAN, thrombocytopenia, HLD, falls, esophageal dysmotility, here with acute infection with babesiosis as well as aspiration event with pneumonitis and acute on chronic respiratory failure with hypoxemia. - Improving from aspiration, weaned to 2 LNC O2 continuously, still some crackles. Appreciate speech therapy repeat evaluation-cleared for soft small bite diet with aspiration precautions and esophageal dysmotility precautions. - Continue atovaquone and azithromycin to finish out a 10-day course Stable for discharge to home with home health I spent 35 minutes in the care of this patient at the time of discharge both in [id number] time with the patient, reviewing of laboratory values, and making arrangements for discharge
[2025-03-06 11:47] VITALS: RESP 16; TEMP 98.2; O2SAT 94
[2025-03-06 12:43] VITALS: BP 116/64
--- NOTE | 2025-03-06 14:02 | Billing Data ---
Date of Service March 06, 2025 Coding Level of Care Code 07042 INP/OBS DISCH >30 MIN
[2025-03-06 16:33] VITALS: PULSE 73
[2025-03-06] MEDS ORDERED: LANTUS PER UNIT CHARGE SQ SCH (21:00)
[2025-03-07] MEDS ORDERED: AZITHROMYCIN 250 MG TAB PO SCH (05:00)
[2025-03-09 00:02] LABS: Q Fever IgG, Phase I NEGATIVE
[2025-03-09 11:34] LABS: Q Fever IgG Phase II Ttr Rflx 1:32 titer
== END 2025-03-06 16:52 | disposition home health service (06) | DRG 867 ==
LOC: ED 21:50 → SUATTDRO 03-01 01:02 → EDINP 03-01 01:02 → 2N 03-01 12:12

== ENCOUNTER 2025-06-13 16:44 | Observation (INO) ==
--- NOTE | 2025-06-13 17:03 | Emergency Department Note ---
Impression & Plan Food impaction of esophagus, Difficulty in swallowing ED Provider Note NAME: EMMIE NAVARRETE AGE: 85 SEX: F : 1940 ARRIVES VIA: Ambulance INFORMANT: Patient, EMS, the patient's daughter in law ED PROVIDER(S): Yonatan Boyce DO CHIEF COMPLAINT: Difficulty swallowing HPI: The patient is an 85-year-old female who has a history of chronic difficulty swallowing who presented to the emergency department because of 2 days of nausea vomiting. Every time the patient eats she vomits. She cannot even drink liquids. She is on hospice. Her family called the hospice nurse and they were instructed to bring the patient to the emergency department for fear of an esophageal obstruction. ROS: See above HPI for pertinent positives & negatives. A total of 10 systems reviewed and were otherwise negative. PAST MEDICAL HISTORY: See Below PAST SURGICAL HISTORY: See Below FAMILY HISTORY: See Below SOCIAL HISTORY: See Below HOME MEDICATIONS: See Below ALLERGIES: See Below VITALS: See Below PHYSICAL EXAMINATION: GENERAL: Patient is awake alert in no acute distress patient is resting comfortably and showing no signs of anxiety EYES: The conjunctivae are clear. The pupils are round and reactive. EARS, NOSE, MOUTH AND THROAT: The nose is without any evidence of any deformity. NECK: The neck is nontender and supple. RESPIRATORY: Normal respiratory effort is noted there is no evidence of wheezing rhonchi or rales CARDIOVASCULAR: Regular rate and rhythm noted there no murmurs rubs or gallops normal S1 normal S2. GASTROINTESTINAL: The abdomen is soft. Abdomen is nontender. MUSCULOSKELETAL/EXTREMITIES: There is no evidence of gross deformity full range of motion is noted in the hips and shoulders. SKIN: There is no obvious evidence of any rash. There are no petechiae, pallor or cyanosis noted. NEUROLOGIC: Patient is awake alert and oriented to person place and situation. Strength is symmetric. MEDICAL DECISION MAKING: The patient is an 85-year-old female who presented to the emergency department for an evaluation. The patient was having difficulty swallowing. She does have a history of esophageal issues in the past. The patient was not vomiting actively in the emergency department. She was tolerating her secretions. I discussed the patient's laboratory and radiographic studies with her and her family. The patient does appear to have a large food impaction in her esophagus. This is very extensive and likely puts the patient at significant risk for aspiration. For this reason I discussed her condition with the on-call ingot passer as well as the on-call [facility] hospitalist. They have agreed to evaluate the patient for further management and disposition. Triage Nursing notes reviewed. Prior medical records reviewed Vital Signs: reviewed and remarkable for elevated blood pressure. Differential diagnosis: Etiologies such as appendicitis, diverticulitis, obstruction, inflammatory bowel disease, renal colic, PUD, biliary pathology, pancreatitis, mesenteric ischemia, aortic pathology, infections, genitourinary, UTI, perforated viscus, as well as others were entertained. ER treatment provided: See below Diagnostics interpreted by me: ECG: EKG was obtained in the emergency department. My interpretation is normal sinus rhythm at 77 bpm. There is no ectopy. Right bundle branch block pattern is noted. This was compared to a tracing from February 28, 2025. No changes were noted. Cardiac Monitoring: An order was placed for continuous cardiac monitoring. The monitor shows a rate of 74 bpm with sinus rhythm. Laboratory studies: As stated above and show below. Imaging studies: See below. Radiographic imaging was reviewed by myself Consultation(s): I discussed this case with Dr. Shirley who is on for gastroenterology. I discussed this case with Dr. Coronel who is on-call for the [facility] Hospitalist group. Past Med/Surg History Problem List (Updated 06/13/25 @ 22:01 by Yonatan Boyce DO) Difficulty in swallowing (Acute) Food impaction of esophagus (Acute) Esophageal dysmotility Food impaction of esophagus Hyperlipidemia Hypothyroid Diabetes mellitus Babesiosis Generalized weakness (Acute) Babesiosis (Acute) Dementia Memory loss Gait instability Shortness of breath Pancytopenia Acute respiratory failure with hypoxia Rhinovirus (Acute) Sepsis Multifocal pneumonia Hypomagnesemia (Acute) Edema of both legs SHARRON (obstructive sleep apnea) Abnormal CT scan, esophagus Closed fracture of left proximal humerus (09/29/23) Comminuted fracture of the left humeral head from a fall History of fall Cirrhosis, nonalcoholic Essential thrombocythemia follows with hematology. yearly CBC Hyperlipidemia Elevated LFTs Hypothyroid Medical History Delirium Fever Type 2 diabetes mellitus Essential thrombocytopenia follows with hematology. yearly CBC Edema of both legs History of COVID-19 History of esophageal dilatation Hx of fall (09/2023) Comminuted fracture of the left humeral head Hyperlipidemia Hypertension denies History of shoulder fracture (09/2023) left- (no surgery/moderate rom) Comminuted fracture of the left humeral head from a fall Arthritis mild Frequent UTI Cirrhosis, non-alcoholic Dysphagia reason for procedure Sleep apnea no device used Hypothyroidism Diabetes mellitus, type 2 Surgical History History of anesthesia reaction slow to wake up History of esophagogastroduodenoscopy (EGD) History of colonoscopy History of tooth extraction (05/29/24) all upper teeth removed week of 05/29/24 History of cataract surgery b/l Hx of cholecystectomy History of knee replacement left Family History Mother Diabetes Grandfather No problems noted. Grandmother Diabetes Denies family history of Ovarian cancer Prostate cancer Myocardial infarction Breast cancer Colorectal cancer Hypertension Social History Smoking Status: Never smoker Second Hand Exposure: No; Do You Dip or Chew Tobacco: No; Hx Alcohol Use: No Hx Substance Use: No Preferred Language: Bengali Communication Ability: Impaired Visual Impairment: Limited Hearing Ability: Hard of Hearing Beef Breaker Required: No Beliefs That Will Affect Care: None marital status: marital status details: Spouse and son Current Living Situation: Spouse current occupational status: retired How many Children do You have: 3 Feels Safe at Home: Yes Childhood Exposure to Second-Hand Smoke: Yes Diet: regular caffeine: Yes during the past year weight has: remained stable Dental Care, Regularly: Yes Physical Activity Frequency: Does not Exercise Seatbelt Use: always Sunscreen Use: No Do you think of yourself as: straight/heterosexual Sexual Activity: has been sexually active, but not for at least 12 months Gender Identity: Female Assistive Devices: Cane, CPAP, Glasses and Walker Allergies Allergies Allergy/AdvReac Type Severity Reaction Status Date / Time Penicillins Allergy Intermediate unsure of Verified 06/13/25 19:38 reaction/been a long time latex Allergy Mild skin Verified 06/13/25 19:38 sensitive Home Meds Home Medications Medication Instructions Recorded Confirmed levothyroxine 50 mcg tablet 50 mcg PO HS 12/24/24 06/13/25 hyoscyamine sulfate 0.125 mg 0.125 mg sublingual Q4H PRN 06/13/25 06/13/25 sublingual tablet INCREASED SECRETIONS insulin glargine 100 unit/mL (3 15 unit subcut QPM 06/13/25 06/13/25 mL) subcutaneous pen (Lantus Solostar U-100 Insulin) sennosides 8.6 mg-docusate sodium 1 tab PO DAILY 06/13/25 06/13/25 50 mg tablet (Stimulant Laxative Plus) Previous Rx's Medication Instructions Recorded blood sugar diagnostic (OneTouch #100 ea 05/17/24 Ultra Test strips) pen needle, diabetic 32 gauge x #200 ea 09/18/24" (BD Ultra-Fine Ricarda Pen Needle) Oxygen Home #1 ea 01/15/25 lancets 33 gauge (OneTouch Delica #100 ea 04/16/25 Plus Lancet) Results & Data (ED) Vital Signs Vital Signs - 24 hr 06/13/25 16:54 06/13/25 16:54 06/13/25 17:06 Temperature 36.8 C Temperature Source Oral Pulse Rate 75 74 73 Pulse Rate [Apical] Pulse Rate from SpO2 Sensor 72 Respiratory Rate 14 16 11 L Respiratory Effort / Characteristics Non-Labored Respiratory Depth Normal Blood Pressure 144/73 H Blood Pressure [Right Arm] Blood Pressure Mean 96 Blood Pressure Mean [Right Arm] Pulse Oximetry 99 98 99 Oxygen Delivery Method Nasal Cannula Room Air Oxygen Flow Rate 2 Sepsis Recent Fever Within 48 Hours Yes Sepsis New/Unexplained Change in Mental Status N/A Sepsis Action Taken by Nursing No Action Required 06/13/25 17:12 06/13/25 17:15 06/13/25 17:21 Temperature Temperature Source Pulse Rate 73 75 71 Pulse Rate [Apical] Pulse Rate from SpO2 Sensor 73 71 Respiratory Rate 22 19 Respiratory Effort / Characteristics Respiratory Depth Blood Pressure Blood Pressure [Right Arm] Blood Pressure Mean Blood Pressure Mean [Right Arm] Pulse Oximetry 100 99 Oxygen Delivery Method Oxygen Flow Rate Sepsis Recent Fever Within 48 Hours Sepsis New/Unexplained Change in Mental Status Sepsis Action Taken by Nursing 06/13/25 17:30 06/13/25 17:42 06/13/25 17:51 Temperature Temperature Source Pulse Rate 73 70 76 Pulse Rate [Apical] Pulse Rate from SpO2 Sensor 73 71 73 Respiratory Rate 15 20 20 Respiratory Effort / Characteristics Respiratory Depth Blood Pressure Blood Pressure [Right Arm] Blood Pressure Mean Blood Pressure Mean [Right Arm] Pulse Oximetry 100 99 98 Oxygen Delivery Method Oxygen Flow Rate Sepsis Recent Fever Within 48 Hours Sepsis New/Unexplained Change in Mental Status Sepsis Action Taken by Nursing 06/13/25 18:13 06/13/25 18:13 06/13/25 18:13 Temperature Temperature Source Pulse Rate Pulse Rate [Apical] Pulse Rate from SpO2 Sensor Respiratory Rate Respiratory Effort / Characteristics Respiratory Depth Blood Pressure 153/72 H 153/72 H 153/72 H Blood Pressure [Right Arm] Blood Pressure Mean 127 127 127 Blood Pressure Mean [Right Arm] Pulse Oximetry Oxygen Delivery Method Oxygen Flow Rate Sepsis Recent Fever Within 48 Hours Sepsis New/Unexplained Change in Mental Status Sepsis Action Taken by Nursing 06/13/25 18:13 06/13/25 18:13 06/13/25 18:21 Temperature Temperature Source Pulse Rate 73 Pulse Rate [Apical] Pulse Rate from SpO2 Sensor 72 Respiratory Rate 37 H Respiratory Effort / Characteristics Respiratory Depth Blood Pressure 153/72 H 153/72 H Blood Pressure [Right Arm] Blood Pressure Mean 127 127 Blood Pressure Mean [Right Arm] Pulse Oximetry 99 Oxygen Delivery Method Oxygen Flow Rate Sepsis Recent Fever Within 48 Hours Sepsis New/Unexplained Change in Mental Status Sepsis Action Taken by Nursing 06/13/25 18:30 06/13/25 18:30 06/13/25 18:30 Temperature Temperature Source Pulse Rate Pulse Rate [Apical] Pulse Rate from SpO2 Sensor Respiratory Rate Respiratory Effort / Characteristics Respiratory Depth Blood Pressure 139/109 H 139/109 H 139/109 H Blood Pressure [Right Arm] Blood Pressure Mean 113 113 113 Blood Pressure Mean [Right Arm] Pulse Oximetry Oxygen Delivery Method Oxygen Flow Rate Sepsis Recent Fever Within 48 Hours Sepsis New/Unexplained Change in Mental Status Sepsis Action Taken by Nursing 06/13/25 18:30 06/13/25 18:30 06/13/25 18:30 Temperature Temperature Source Pulse Rate 70 Pulse Rate [Apical] Pulse Rate from SpO2 Sensor 70 Respiratory Rate 24 Respiratory Effort / Characteristics Respiratory Depth Blood Pressure 139/109 H 139/109 H Blood Pressure [Right Arm] Blood Pressure Mean 113 113 Blood Pressure Mean [Right Arm] Pulse Oximetry 99 Oxygen Delivery Method Oxygen Flow Rate Sepsis Recent Fever Within 48 Hours Sepsis New/Unexplained Change in Mental Status Sepsis Action Taken by Nursing 06/13/25 19:12 06/13/25 21:19 06/13/25 21:33 Temperature Temperature Source Pulse Rate 76 Pulse Rate [Apical] 72 74 Pulse Rate from SpO2 Sensor Respiratory Rate 20 18 Respiratory Effort / Characteristics Respiratory Depth Blood Pressure Blood Pressure [Right Arm] 149/65 H 148/87 H Blood Pressure Mean Blood Pressure Mean [Right Arm] 93 107 Pulse Oximetry 96 98 Oxygen Delivery Method Nasal Cannula Nasal Cannula Oxygen Flow Rate 2 2 Sepsis Recent Fever Within 48 Hours Sepsis New/Unexplained Change in Mental Status Sepsis Action Taken by [facility] Medications Current Medication List: was personally reviewed by me Laboratory Data Attestation: I reviewed the patient's lab results. 06/13/25 16:57 06/13/25 17:44 Lab Results 06/13/25 06/13/25 06/13/25 Range/Units 16:57 17:44 19:31 WBC 3.85 L (4.8-10.8) K/ul RBC 4.43 (4.20-5.40) M/uL Hgb 13.3 (12.0-16.0) g/dL Hct 40.6 (37.0-47.0) % MCV 91.6 (80.0-100.0) fL MCH 30.0 (25.0-34.0) pg MCHC 32.8 (32.0-36.0) g/dL RDW Std Deviation 58.4 H (36.4-46.3) fL RDW Coeff of Arsen 17.4 H (11.5-14.5) % Plt Count 83 L (130-400) K/uL MPV 10.1 (9.4-12.4) fL Immature Gran % (Auto) 0.5 % Neut % (Auto) 54.3 % Lymph % (Auto) 34.0 % Gray % (Auto) 6.8 % Eos % (Auto) 3.4 % Baso % (Auto) 1.0 % Neut # (Auto) 2.09 (1.40-6.50) K/uL Lymph # (Auto) 1.31 (1.20-3.40) K/uL Gray # (Auto) 0.26 (0.11-0.59) K/uL Eos # (Auto) 0.13 (0.00-0.50) K/uL Baso # (Auto) 0.04 (0.00-0.20) K/uL Immature Gran # (Auto) 0.02 (0.01-0.20) K/uL RBC Morphology Unremarkable PT 12.5 H (9.0-12.0) Seconds INR 1.2 H (0.9-1.1) Sodium TNP 140 Potassium TNP 4.3 Chloride 104 (98-107) mmol/L Carbon Dioxide 28 (21-32) mmol/L Anion Gap TNP BUN 11 (6-23) mg/dl Creatinine 0.73 (0.6-1.2) mg/dl Est Cr Clr Drug Dosing 55.8 ml/min eGFR 81.55 BUN/Creatinine Ratio 15.1 (10-20) Glucose 146 H (70-99(Fasting)) mg/dl Calcium 9.0 (8.6-10.3) mg/dl Total Bilirubin 1.5 H (0.2-1.0) mg/dl AST TNP 41 H ALT 28 (7-52) U/L Alkaline Phosphatase TNP 83 Troponin I High Sens 8.7 (0-14) pg/ml Total Protein 6.9 (6.0-8.3) gm/dl Albumin TNP 3.3 L Globulin TNP Albumin/Globulin Ratio TNP Lipase 19 (11-82) U/L Urine Color Yellow Urine Appearance Clear (Clear) Urine pH 7.5 (4.5-7.5) Ur Specific [place] > 1.045 H (1.000-1.030) Urine Protein Negative (Negative) Urine Glucose (UA) Negative (Negative) Urine Ketones 1+ H (Negative) Urine Blood Negative (Negative) Urine Nitrite Negative (Negative) Urine Bilirubin Negative (Negative) Urine Urobilinogen Negative (Negative) Ur Leukocyte Esterase Negative (Negative) Urine Comment Administered Medications Discontinued Medications Cefepime HCl (Maxipime 2000mg) 2,000 mg in 20 mls @ 5 mls/min IV NOW STA; Protocol Stop: 06/13/25 20:25 Last Admin: 06/13/25 20:34 Dose: 5 mls/min Documented By: [id number] Ioversol (Optiray 320 125ml) 118 ml IV ONCE ONE Stop: 06/13/25 18:02 Last Admin: 06/13/25 18:02 Dose: 118 ml Documented By: GES Imaging Data Attestation: I personally reviewed and interpreted this imaging study as follows: My Impression: CT of the chest was obtained in the emergency department. My interpretation is no free air, air-fluid level noted in the proximal esophagus with foodstuffs noted throughout the esophagus. Final report below. Radiologist's Impression: Chest CTA 06/13/25 16:54 Exam: CT angiogram of the chest with pulmonary embolus protocol. Reason for exam: Epigastric discomfort. Previous studies: 03/04/2025 FINDINGS: Pulmonary arteries appear opacified. No persistent filling defect to indicate embolus is seen on either side at this time. Additional scattered vascular atherosclerotic calcification but no evidence of significant aneurysm, intimal flap visible dissection at the examined levels. Large hiatal hernia is present with marked dilatation of the entire thoracic esophagus to the level of the cervical esophagus. This is increased further in severity as compared to the study of 03/04/2025. Moderate coronary artery calcifications are present. Lungs show evidence of mild chronic interstitial fibrosis and COPD no definite acute infiltrate. IMPRESSION: 1. Negative for pulmonary embolus. 2. Severe abnormal dilatation of the entire thoracic and lower cervical esophagus, significantly increased since the previous study of 03/04/2025. Abundant food materials with air fluid level is present. Large hiatal hernia is present. 3. Possible obstructing lesion of the esophagus or severe peristaltic disorder should be considered. Follow-up endoscopy following evacuation of the contents of the esophagus recommended for more definitive diagnosis. Electronically signed by Hema Johnson 06-13-2025 8:15 PM Abdomen/Pelvis CT 06/13/25 16:55 Exam: CT abdomen/pelvis with IV contrast. Reason for exam: Possible esophageal foreign body. Previous studies: None FINDINGS: The lower lung zones show evidence of some pulmonary fibrosis and scattered areas of linear scarring. There is a large horizontally oriented hiatal hernia present. Some contrast is noted within the body of the hiatal hernia and lower thoracic esophagus. Additionally there is an ill-defined 2.5 cm diameter cystic filling defects suggested in the midportion of the hiatal hernia with slightly decreased CT density as compared to the remaining gastric contents. This is of uncertain significance but in the setting of possible foreign body ingested material could cause this appearance. No definite metallic is radiopaque foreign body is identified at this time. The remaining portion of the stomach below the diaphragm essentially unremarkable. Clips from cholecystectomy are noted. Spleen is mildly enlarged. Liver is somewhat nodular in contour suggesting possible cirrhosis, without focal lesion at this time. Pancreas is unremarkable. Kidneys function bilaterally without evidence of mass or obstruction. No evidence of small bowel obstruction no free air is seen. No evidence of appendicitis. Uterus mildly enlarged and inhomogeneous suggesting fibroid formation. No acute or active bony process is seen. IMPRESSION: 1. Suggestion of a possible circular filling defect in the herniated portion of the stomach located above the diaphragm measuring 2.5 cm. This is of slightly lower radiographic density as compared to the remaining gastric contents (axial image #6 of 96 in series 2) clinical correlation with the material of the possible ingested foreign body recommended. Definitive evaluation and therapy could be obtained with endoscopy. 2. Splenomegaly. 3. Nodular contour of the liver suggesting possible cirrhosis. 4. Mildly enlarged fibroid uterus. Electronically signed by Hema Johnson 06-13-2025 8:05 PM Discharge Plan Visit Data Chief Complaint: Food Bolus Stated Complaint: Food bolus ED Provider: Yonatan Boyce Discharge Problem: Food impaction of esophagus, Difficulty in swallowing Patient Disposition: Admitted As Inpatient Condition: Fair Discharge Instructions Interventions: ED Discharge Assessment Last Done: 06/13/25 21:35 Forms Stand Alone Forms: [facility] Prescriptions Prescriptions: No Action (DME) OneTouch Ultra Test Strip See Rx Instructions .Route Qty: 100 3RF Rx Instructions: check blood sugar BID (DME) lancets [OneTouch Delica Plus Lancet] 33 gauge misc See Rx Instructions .Route Qty: 100 2RF Rx Instructions: check blood sugar twice a day (DME) pen needle, diabetic [BD Ultra-Fine Ricarda Pen Needle] 32 gauge x 5/32" needle See Rx Instructions .Route Qty: 200 3RF Rx Instructions: use with insulin injections BID (DME) Oxygen Home Liters Per Minute See Rx Instructions .Route Qty: 1 0RF Rx Instructions: As directed sennosides-docusate sodium [Stimulant Laxative Plus] 8.6-50 mg tablet 1 tab PO DAILY hyoscyamine sulfate 0.125 mg tablet, sublingual 0.125 mg sublingual Q4H PRN (Reason: INCREASED SECRETIONS) insulin glargine [Lantus Solostar U-100 Insulin] 100 unit/mL (3 mL) insulin pen 15 unit SUBCUT QPM levothyroxine 50 mcg tablet 50 mcg PO HS Referrals Referrals: PCP,NO [Primary Care Provider] -
[2025-06-13 17:35] LABS: Alanine Aminotransferase 28 U/L (7-52); Bilirubin,Total 1.5 mg/dl (0.2-1.0); Blood Urea Nitrogen 11 mg/dl (6-23); Calcium 9.0 mg/dl (8.6-10.3); Carbon Dioxide 28 mmol/L (21-32); Chloride 104 mmol/L (98-107); Creatinine Clr Calc Pharmacy 55.8 ml/min; Glucose 146 mg/dl (70-99(Fasting)); Lipase 19 U/L (11-82); Total Protein 6.9 gm/dl (6.0-8.3)
[2025-06-13 17:50] LABS: Hematocrit (blood only) 40.6 % (37.0-47.0); Hemoglobin 13.3 g/dL (12.0-16.0); Mean Corpuscular Hemoglobin 30.0 pg (25.0-34.0); Mean Corpuscular Volume 91.6 fL (80.0-100.0); Platelet Count 83 K/uL (130-400); RDW Standard Deviation 58.4 fL (36.4-46.3); Red Blood Count 4.43 M/uL (4.20-5.40); White Blood Count 3.85 K/ul (4.8-10.8)
[2025-06-13 17:52] LABS: Immature Granulocytes # (auto) 0.02 K/uL (0.01-0.20); Immature Granulocytes % (auto) 0.5 %; RBC Morphology Unremarkable
[2025-06-13] MEDS: OPTIRAY 320 125ml IV ONE (18:02)
[2025-06-13 18:25] LABS: Albumin Level 3.3 gm/dl (3.4-5.0); Alkaline Phosphatase 83.0 U/L (34-104); Potassium 4.3 mmol/L (3.5-5.1); Sodium 140.0 mmol/L (136-145)
[2025-06-13 19:45] LABS: Appearance Urine Clear (Clear); Glucose Urine UA Negative (Negative)
--- NOTE | 2025-06-13 20:08 | History & Physical Report ---
Date of Service June 13, 2025 Assessment & Plan (1) Food impaction of esophagus: (2) Type 2 diabetes mellitus: Plan 85-year-old female PMHx hypothyroidism, HLD, essential thrombocytopenia, nonalcoholic cirrhosis, history of falls, SHARRON, gait instability, dementia, and T2DM presenting for increased oral secretions and midsternal chest discomfort. Evaluation is of mild leukopenia 3.85 and thrombocytopenia 83 which is not abnormal for her. Glucose slightly elevated 146, bilirubin 1.5 and AST 41, without abdominal pain. Her troponin is normal and EKG is without ischemic changes. Imaging supports presence of food material in esophagus. Admission for such, possibly to OR night of 06/13/2025. #Esophageal food impaction History of dysphagia/esophageal dysmotility, often has secretions following meals over the last approximate 30 minutes but this episode has been longer. Substernal chest discomfort at present, no respiratory symptoms. Cardiac workup negative as source of chest discomfort, imaging of chest not suggestive of pulmonary etiology, imaging supporting esophageal food material impaction. - CBC leukopenia 3.85, stable H&H, platelets 83; PT/INR pending; troponin 8.7 - CBC, BMP am - EKG NSR, no ischemic changes - Chest CTA no PE, severe abnormal dilatation entire thoracic lower cervical esophagus, but food material and air-fluid level present, large hiatal hernia, possible obstructing lesion of esophagus or severe peristalsis disorder - CTAP possible circular filling defect herniated portion of stomach above diagram (definitive evaluation with endoscopy), splenomegaly, nodular contour liver suggesting possible cirrhosis, mildly enlarged fibroid uterus - Aspiration precautions - NPO -- once diet ordered, T2DM + soft bites - O2 via NC at 2L at baseline - continue - IVF LR @ 100 mL/hr - Zofran prn N/V - Acetaminophen prn fever/pain - May continue Hyoscyamine prn once diet ordered - NPO for now - Cefepime IV x 1 -- h/o aspiration pneumonitis, empirically treat for aspiration at time of admission - GI consulted - ? to OR - appreciate input + recs #T2DM H/o DMT2; At home regimen includes Lantus 15U at night. - Glucose on admission 146; Most recent A1C 02/2025 @ 6.6% - SSI with target BSG range 110-140mg/dL, CF 35, carb ratio 10 - Lantus 10U BID - BSG q6h while npo - Adjust regimen as needed #Essential thrombocytopenia- Per history; denies active bleeding or bruising; CBC H/H stable, plt 83 - Monitor as appropriate #ADAN- LFTs bili 1.5, AST 41, ALT 28; CTAP nodular contour liver suggesting possible cirrhosis; Avoid hepatotoxins, < 2g Acetaminophen daily recommended - trend as appropriate #Dementia- No current medications for such, continue to monitor and redirect as necessary #Hypothyroidism- TSH 12/2024 @ 1.416; Levothyroxine - continue Dispo: Obs, med/sx -- pt would like to try to get home for Thanksgiving, please determine if able to go home on 06/14/2025 as long as medically appropriate VTE Prophylaxis: SCDs This document was dictated utilizing c3 creations. Please excuse any grammatical errors that may be secondary to use of this software. Admission and Anticipated Discharge Date Admission Date: 06/13/2025 History of Present Illness Chief Complaint: Food bolus Primary Care Provider: VALERIE PCP 85-year-old female PMHx hypothyroidism, HLD, essential thrombocytopenia, nonalcoholic cirrhosis, history of falls, SHARRON, gait instability, dementia, and T2DM presenting for increased oral secretions and midsternal chest discomfort. Patient's and daughter in room at time of visit and provide history. 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 Normally whenever she eats, she has episodes of spitting up clear mucus last approximately 30 minutes and then it resolves itself. She does sometimes take hyoscyamine for secretions but did not at this time. She continued to spit up mucus for multiple hours after eating which was abnormal for her. st ates that the day of arrival the patient did have breakfast, she continued to spit up and has been since. She did not have lunch or dinner. She is having some substernal chest discomfort, feels gnawing in nature, but does not radiate or presents of any rest. She is without SOB, palpitations, or wheezing. No nausea or vomiting. Abdomen is without pain. She does not want to stay in the hospital but she would like to go home for Thanksgiving as to spent time with her family. Denies F/C, URI symptoms, LUTS, numbness/tingling, weakness, syncope, or falls. Again, she is without respiratory symptoms. ED evaluation CBC with leukopenia 3.85, H&H stable, platelets 83; PT/INR pending; CMP glucose 146, total bilirubin 1.5, AST 41, BUN 3.3; troponin 8.7; UA negative for infection; chest CTA no PE, severe abnormal dilatation entire thoracic lower cervical esophagus, but food material and air-fluid level present, large hiatal hernia, possible obstructing lesion of esophagus or severe peristalsis disorder; CTAP possible circular filling defect herniated portion of stomach above diagram (definitive evaluation with endoscopy), splenomegaly, nodular contour liver suggesting possible cirrhosis, mildly enlarged fibroid uterus; EKG sinus, with pulmonary disease pattern. Please see Dr. Roman's attestation for adjustments/additions to treatment plan. Allergies Allergy/AdvReac Type Severity Reaction Status Date / Time Penicillins Allergy Intermediate unsure of Verified 06/13/25 19:38 reaction/been a long time latex Allergy Mild skin Verified 06/13/25 19:38 sensitive Home Medications Medication Instructions Recorded Confirmed Type blood sugar diagnostic (VoloAgri GroupTouch #100 ea 05/17/24 02/28/25 Rx Ultra Test strips) pen needle, diabetic 32 gauge x #200 ea 09/18/24 02/28/25 Rx 5/32" (BD Ultra-Fine Ricarda Pen Needle) levothyroxine 50 mcg tablet 50 mcg PO HS 12/24/24 06/13/25 History Oxygen Home #1 ea 01/15/25 02/28/25 Rx lancets 33 gauge (OneTouch Delica #100 ea 04/16/25 Rx Plus Lancet) hyoscyamine sulfate 0.125 mg 0.125 mg sublingual Q4H PRN 06/13/25 06/13/25 History sublingual tablet INCREASED SECRETIONS insulin glargine 100 unit/mL (3 15 unit subcut QPM 06/13/25 06/13/25 History mL) subcutaneous pen (Lantus Solostar U-100 Insulin) sennosides 8.6 mg-docusate sodium 1 tab PO DAILY 06/13/25 06/13/25 History 50 mg tablet (Stimulant Laxative Plus) Past Med/Surg History Problem List (Updated 06/13/25 @ 22:01 by Yonatan Boyce DO) Difficulty in swallowing (Acute) Food impaction of esophagus (Acute) Esophageal dysmotility Food impaction of esophagus Hyperlipidemia Hypothyroid Diabetes mellitus Babesiosis Generalized weakness (Acute) Babesiosis (Acute) Dementia Memory loss Gait instability Shortness of breath Pancytopenia Acute respiratory failure with hypoxia Rhinovirus (Acute) Sepsis Multifocal pneumonia Hypomagnesemia (Acute) Edema of both legs SHARRON (obstructive sleep apnea) Abnormal CT scan, esophagus Closed fracture of left proximal humerus (09/29/23) Comminuted fracture of the left humeral head from a fall History of fall Cirrhosis, nonalcoholic Essential thrombocythemia follows with hematology. yearly CBC Hyperlipidemia Elevated LFTs Hypothyroid Medical History Delirium Fever Type 2 diabetes mellitus Essential thrombocytopenia follows with hematology. yearly CBC Edema of both legs History of COVID-19 History of esophageal dilatation Hx of fall (09/2023) Comminuted fracture of the left humeral head Hyperlipidemia Hypertension denies History of shoulder fracture (09/2023) left- (no surgery/moderate rom) Comminuted fracture of the left humeral head from a fall Arthritis mild Frequent UTI Cirrhosis, non-alcoholic Dysphagia reason for procedure Sleep apnea no device used Hypothyroidism Diabetes mellitus, type 2 Surgical History History of anesthesia reaction slow to wake up History of esophagogastroduodenoscopy (EGD) History of colonoscopy History of tooth extraction (05/29/24) all upper teeth removed week of 05/29/24 History of cataract surgery b/l Hx of cholecystectomy History of knee replacement left Family History Mother Diabetes Grandfather No problems noted. Grandmother Diabetes Denies family history of Ovarian cancer Prostate cancer Myocardial infarction Breast cancer Colorectal cancer Hypertension Social History Smoking Status: Never smoker Second Hand Exposure: No; Do You Dip or Chew Tobacco: No; Hx Alcohol Use: No Hx Substance Use: No Preferred Language: Indonesian Communication Ability: Effective Visual Impairment: Limited Hearing Ability: Hard of Hearing Postal Carrier Required: No Beliefs That Will Affect Care: None marital status: marital status details: Spouse and son Current Living Situation: Spouse and Family current occupational status: retired How many Children do You have: 3 Other Information That Helps Us Care for You: No Feels Safe at Home: Yes Safety Concerns: Feels Safe At This Time Childhood Exposure to Second-Hand Smoke: Yes Diet: regular caffeine: Yes during the past year weight has: remained stable Dental Care, Regularly: Yes Physical Activity Frequency: Does not Exercise Seatbelt Use: always Sunscreen Use: No Do you think of yourself as: straight/heterosexual Sexual Activity: has been sexually active, but not for at least 12 months Gender Identity: Female Assistive Devices: Hospital Bed, Oxygen - Continuous and Walker Review of Systems Review of Systems: All systems reviewed & are unremarkable except as noted in Subjective Physical Exam Physical Exam: General: No acute distress Skin: Warm and dry Head: Normocephalic, atraumatic Eyes: PERRL, conjunctivae clear, sclera non-icteric; wearing glasses ENT: External ear and ear canal without swelling; nose atraumatic; no upper dentures, fair dentition, tongue normal appearance, pharynx normal Neck: Supple, no LAD Cardio: RRR, no M/G/R, S1 and S2 normal Resp: No respiratory distress, Lungs CTA in all lobes bilaterally, no wheezes, rales, or rhonchi Abdomen: Soft, symmetric, nontender; No masses or hepatosplenomegaly; Bowel sounds normoactive MSK: No deformities; pulses palpable and equal; no edema. Neuro: Awake, alert; Sensation intact bilaterally; CN grossly intact Psych: Appropriate mood and affect; good judgement and insight. Daughter and present in room at time of visit. Results & Data Results & Data Vital Signs (Past 12 Hours) Vital Signs Temp Pulse Pulse Resp BP BP Pulse Ox 06/13/25 19:12 72 20 149/65 H 96 06/13/25 18:30 70 24 99 06/13/25 18:30 139/109 H 06/13/25 18:30 139/109 H 06/13/25 18:30 139/109 H 06/13/25 18:30 139/109 H 06/13/25 18:30 139/109 H 06/13/25 18:21 73 37 H 99 06/13/25 18:13 153/72 H 06/13/25 18:13 153/72 H 06/13/25 18:13 153/72 H 06/13/25 18:13 153/72 H 06/13/25 18:13 153/72 H 06/13/25 17:51 76 20 98 06/13/25 17:42 70 20 99 06/13/25 17:30 73 15 100 06/13/25 17:21 71 19 99 06/13/25 17:15 75 06/13/25 17:12 73 22 100 06/13/25 17:06 73 11 L 99 06/13/25 16:54 74 16 98 06/13/25 16:54 36.8 C 75 14 144/73 H 99 O2 Del Method O2 Flow Rate 06/13/25 19:12 Nasal Cannula 2 06/13/25 18:30 06/13/25 18:30 06/13/25 18:30 06/13/25 18:30 06/13/25 18:30 06/13/25 18:30 06/13/25 18:21 06/13/25 18:13 06/13/25 18:13 06/13/25 18:13 06/13/25 18:13 06/13/25 18:13 06/13/25 17:51 06/13/25 17:42 06/13/25 17:30 06/13/25 17:21 06/13/25 17:15 06/13/25 17:12 06/13/25 17:06 06/13/25 16:54 Room Air 06/13/25 16:54 Nasal Cannula 2 Laboratory Results 06/13/25 06/13/25 06/13/25 19:31 17:44 16:57 WBC 3.85 L RBC 4.43 Hgb 13.3 Hct 40.6 MCV 91.6 MCH 30.0 MCHC 32.8 RDW Std Deviation 58.4 H RDW Coeff of Arsen 17.4 H Plt Count 83 L MPV 10.1 Immature Gran % (Auto) 0.5 Neut % (Auto) 54.3 Lymph % (Auto) 34.0 [place] % (Auto) 6.8 Eos % (Auto) 3.4 Baso % (Auto) 1.0 Neut # (Auto) 2.09 Lymph # (Auto) 1.31 [place] # (Auto) 0.26 Eos # (Auto) 0.13 Baso # (Auto) 0.04 Immature Gran # (Auto) 0.02 RBC Morphology Unremarkable Sodium 140 TNP Potassium 4.3 TNP Chloride 104 Carbon Dioxide 28 Anion Gap TNP BUN 11 Creatinine 0.73 Est Cr Clr Drug Dosing 55.8 eGFR 81.55 BUN/Creatinine Ratio 15.1 Glucose 146 H Calcium 9.0 Total Bilirubin 1.5 H AST 41 H TNP ALT 28 Alkaline Phosphatase 83 TNP Troponin I High Sens 8.7 Total Protein 6.9 Albumin 3.3 L TNP Globulin TNP Albumin/Globulin Ratio TNP Lipase 19 Urine Color Yellow Urine Appearance Clear Urine pH 7.5 Ur Specific [place] > 1.045 H Urine Protein Negative Urine Glucose (UA) Negative Urine Ketones 1+ H Urine Blood Negative Urine Nitrite Negative Urine Bilirubin Negative Urine Urobilinogen Negative Ur Leukocyte Esterase Negative Urine Comment Diagnostic Findings Chest CTA 06/13/25 16:54 Exam: CT angiogram of the chest with pulmonary embolus protocol. Reason for exam: Epigastric discomfort. Previous studies: 03/04/2025 FINDINGS: Pulmonary arteries appear opacified. No persistent filling defect to indicate embolus is seen on either side at this time. Additional scattered vascular atherosclerotic calcification but no evidence of significant aneurysm, intimal flap visible dissection at the examined levels. Large hiatal hernia is present with marked dilatation of the entire thoracic esophagus to the level of the cervical esophagus. This is increased further in severity as compared to the study of 03/04/2025. Moderate coronary artery calcifications are present. Lungs show evidence of mild chronic interstitial fibrosis and COPD no definite acute infiltrate. IMPRESSION: 1. Negative for pulmonary embolus. 2. Severe abnormal dilatation of the entire thoracic and lower cervical esophagus, significantly increased since the previous study of 03/04/2025. Abundant food materials with air fluid level is present. Large hiatal hernia is present. 3. Possible obstructing lesion of the esophagus or severe peristaltic disorder should be considered. Follow-up endoscopy following evacuation of the contents of the esophagus recommended for more definitive diagnosis. Electronically signed by Hema Johnson 06-13-2025 8:15 PM Abdomen/Pelvis CT 06/13/25 16:55 Exam: CT abdomen/pelvis with IV contrast. Reason for exam: Possible esophageal foreign body. Previous studies: None FINDINGS: The lower lung zones show evidence of some pulmonary fibrosis and scattered areas of linear scarring. There is a large horizontally oriented hiatal hernia present. Some contrast is noted within the body of the hiatal hernia and lower thoracic esophagus. Additionally there is an ill-defined 2.5 cm diameter cystic filling defects suggested in the midportion of the hiatal hernia with slightly decreased CT density as compared to the remaining gastric contents. This is of uncertain significance but in the setting of possible foreign body ingested material could cause this appearance. No definite metallic is radiopaque foreign body is identified at this time. The remaining portion of the stomach below the diaphragm essentially unremarkable. Clips from cholecystectomy are noted. Spleen is mildly enlarged. Liver is somewhat nodular in contour suggesting possible cirrhosis, without focal lesion at this time. Pancreas is unremarkable. Kidneys function bilaterally without evidence of mass or obstruction. No evidence of small bowel obstruction no free air is seen. No evidence of appendicitis. Uterus mildly enlarged and inhomogeneous suggesting fibroid formation. No acute or active bony process is seen. IMPRESSION: 1. Suggestion of a possible circular filling defect in the herniated portion of the stomach located above the diaphragm measuring 2.5 cm. This is of slightly lower radiographic density as compared to the remaining gastric contents (axial image #6 of 96 in series 2) clinical correlation with the material of the possible ingested foreign body recommended. Definitive evaluation and therapy could be obtained with endoscopy. 2. Splenomegaly. 3. Nodular contour of the liver suggesting possible cirrhosis. 4. Mildly enlarged fibroid uterus. Electronically signed by Hema Johnson 06-13-2025 8:05 PM ECG Additional Comments: NSR, pulmonary disease pattern, indeterminate axis 77 bpm, NC 140, QRS 74, QT/QTc 448/506, PRT -20/-81/39 Code Status & VTE Plan Code Status Full Supervising Physician Co-Signing Physician Notes Attending addendum: I have physically seen this patient, have supervised the GRABIEL's activities, and agree with the H&P unless as otherwise noted. Assessment and Plan: The patient is a 85-year-old female past medical history including hypothyroidism, hyperlipidemia, essential thrombocytopenia, nonalcoholic cirrhosis, history of falls, SHARRON, gait instability, dementia, and diabetes mellitus type 2. She presented to the emergency department with increased oral secretions, and midsternal chest discomfort. Workup in the emergency department included CTA of chest which showed severe dilation of the entire thoracic and lower cervical esophagus with abundant food contents. Possible esophageal obstruction or severe peristaltic disorder were suggested. Esophageal food impaction- As noted on CTA chest, which was also negative for PE N.p.o. Gastroenterology has been contacted, and is taking the patient to the OR for emergent EGD. LR at 100 mL/h. Nasal cannula presently 2 L oxygen at this time, goal pulse ox 94-95% Zofran 4 mg IV every 6 hours as needed Acetaminophen 1 g IV every 8 hours as needed for mild pain or fever Pantoprazole 40 mg IV daily Cefepime 2 g IV Diabetes mellitus- Will be n.p.o. until cleared by gastroenterology postprocedure Adjustment in Lantus as noted, to be utilized when patient is allowed to eat Placed on SSI as noted Remaining orders and notations as noted PG Care Time/CCT Total # of Minutes Spent Total Time Spent with Patient: Total time spent is greater than 50% in coordination of care (as documented) at patient's floor/unit and/or counseling patient: Coding Level of Care Code 55353 INT INP/OBS CARE 3/75MIN Diagnoses Food impaction of esophagus T18.128A; [id number] Type 2 diabetes mellitus without complication, with long-term current use of insulin E11.9; Z79.4 Diabetes mellitus complication status: without complication Diabetes mellitus rat exterminator insulin use: with mcc use (2) Type 2 diabetes mellitus Diabetes mellitus complication status: without complication Diabetes mellitus rat exterminator insulin use: with rat exterminator use Qualified Code(s): E11.9 - Type 2 diabetes mellitus without complications; Z79.4 - rat exterminator (current) use of insulin
--- NOTE | 2025-06-13 20:16 | CT Scan Report ---
Exam: CT angiogram of the chest with pulmonary embolus protocol. Reason for exam: Epigastric discomfort. Previous studies: 03/04/2025 FINDINGS: Pulmonary arteries appear opacified. No persistent filling defect to indicate embolus is seen on either side at this time. Additional scattered vascular atherosclerotic calcification but no evidence of significant aneurysm, intimal flap visible dissection at the examined levels. Large hiatal hernia is present with marked dilatation of the entire thoracic esophagus to the level of the cervical esophagus. This is increased further in severity as compared to the study of 03/04/2025. Moderate coronary artery calcifications are present. Lungs show evidence of mild chronic interstitial fibrosis and COPD no definite acute infiltrate. IMPRESSION: 1. Negative for pulmonary embolus. 2. Severe abnormal dilatation of the entire thoracic and lower cervical esophagus, significantly increased since the previous study of 03/04/2025. Abundant food materials with air fluid level is present. Large hiatal hernia is present. 3. Possible obstructing lesion of the esophagus or severe peristaltic disorder should be considered. Follow-up endoscopy following evacuation of the contents of the esophagus recommended for more definitive diagnosis. Electronically signed by Hema Johnson 06-13-2025 8:15 PM
[2025-06-13] MEDS: CEFEPIME 2000MG 2,000 MG/20 ML SYR IV STA (20:34)
[2025-06-13 20:46] LABS: INR 1.2 (0.9-1.1); Prothrombin Time 12.5 Seconds (9.0-12.0)
--- NOTE | 2025-06-13 20:47 | Gastrointestinal Consultation ---
Date of Consultation June 13, 2025 Assessment & Plan (1) Food impaction of esophagus: (2) Dementia: (3) Cirrhosis, nonalcoholic: (4) Essential thrombocytopenia: (5) Dysphagia: (6) Esophageal dysmotility: Plan IMPRESSION: 85-year-old with multiple comorbidities presenting with dysphagia symptoms, substernal chest discomfort with CT imaging demonstrating fluid-filled esophagus increasing risk for aspiration. Strong clinical suspicion that this could represent achalasia. Differential diagnosis includes high-grade stricture, severe ulcerative esophagitis (patient not taking PPI) less likely malignancy. -- Urgent upper endoscopy is recommended in light of high risk for aspiration --PPI twice daily advised indefinitely --Depending on hospice/end-of-life care considerations, consider workup including manometry to rule out achalasia. The patient may benefit from botulinum toxin injection in the distal esophagus, pneumatic dilation. Endoscopic or surgical myotomy could be considered in refractory cases but may be less appealing therapeutic options in this patient with significant dementia and comorbidities --Further recommendations to follow pending upper endoscopy. Consent obtained from patient with present. --The patient has mild thrombocytopenia related to her nonalcoholic cirrhosis. EGD will also allow for assessment of any esophageal varices or portal hypertension. There is no evidence or suggestion of any upper GI bleeding based on lab parameters and clinical symptoms. Thank you for the courtesy of this consultation. History of Present Illness Reason for Consultation: Dysphagia, abnormal CT, retained esophageal contents History of Present Illness The patient is an 85-year-old woman with a history of multiple medical problems including nonalcoholic cirrhosis with thrombocytopenia, hypothyroidism, hyperlipidemia, SHARRON, dementia, type 2 diabetes who presents to [facility] with dysphagia including difficulty swallowing secretions as well as some substernal chest discomfort. The patient was noting that symptoms started right after eating dinner. Apparently she has a history of spitting up food approximately 30 minutes after eating which then resolves. Ultimately due to nonresolution of symptoms the patient presented to the hospital where. Workup thus far includes labs which showed no evidence of anemia with a hemoglobin of 13.3, platelets are low at 83, glucose is 146, ALT mildly elevated at 41 albumin of 3.3. The patient has CT of the abdomen pelvis which showed possible circular filling defect in the herniated portion of stomach above the diaphragm measuring 2.5 cm, splenomegaly, nodular contour of the liver showing cirrhosis and a fibroid uterus. The patient has a history of EGD 11/06/2024 (abnormal CT of the GI tract)-normal esophagus, mild portal hypertensive gastropathy, normal duodenum. The patient had a modified barium swallow on 12/24/2024 showing a small amount of tracheal aspiration with swallows of nectar thick liquids, findings suggestive of severe esophageal dysmotility with air- fluid levels within the esophagus and disordered contractions. On interview with the patient and her and daughter who are present the patient has had a long history of poor esophageal clearance and spitting up. Apparently percutaneous gastrostomy tube placement was discussed in the past but declined. The patient is currently on hospice for dementia as well as for these aspiration issues. She otherwise denies nausea, vomiting, unexplained weight loss, di arrhea, constipation, melena or hematochezia. The patient was previously prescribed proton pump inhibitor but is not on currently. Allergies Allergy/AdvReac Type Severity Reaction Status Date / Time Penicillins Allergy Intermediate unsure of Verified 06/13/25 19:38 reaction/been a long time latex Allergy Mild skin Verified 06/13/25 19:38 sensitive Home Medications Medication Instructions Recorded Confirmed Type blood sugar diagnostic ([facility] #100 ea 05/17/24 02/28/25 Rx Ultra Test strips) pen needle, diabetic 32 gauge x #200 ea 09/18/24 02/28/25 Rx 5/32" (BD Ultra-Fine Ricarda Pen Needle) levothyroxine 50 mcg tablet 50 mcg PO HS 12/24/24 06/13/25 History Oxygen Home #1 ea 01/15/25 02/28/25 Rx lancets 33 gauge ([facility] 04/16/25 Rx Plus Lancet) hyoscyamine sulfate 0.125 mg 0.125 mg sublingual Q4H PRN 06/13/25 06/13/25 History sublingual tablet INCREASED SECRETIONS insulin glargine 100 unit/mL (3 15 unit subcut QPM 06/13/25 06/13/25 History mL) subcutaneous pen (Lantus Solostar U-100 Insulin) sennosides 8.6 mg-docusate sodium 1 tab PO DAILY 06/13/25 06/13/25 History 50 mg tablet (Stimulant Laxative Plus) Patient History Medical History Delirium Fever Type 2 diabetes mellitus Essential thrombocytopenia follows with hematology. yearly CBC Edema of both legs History of COVID-19 History of esophageal dilatation Hx of fall (09/2023) Comminuted fracture of the left humeral head Hyperlipidemia Hypertension denies History of shoulder fracture (09/2023) left- (no surgery/moderate rom) Comminuted fracture of the left humeral head from a fall Arthritis mild Frequent UTI Cirrhosis, non-alcoholic Dysphagia reason for procedure Sleep apnea no device used Hypothyroidism Diabetes mellitus, type 2 Surgical History History of anesthesia reaction slow to wake up History of esophagogastroduodenoscopy (EGD) History of colonoscopy History of tooth extraction (05/29/24) all upper teeth removed week of 05/29/24 History of cataract surgery b/l Hx of cholecystectomy History of knee replacement left Family History Mother Diabetes Grandfather No problems noted. Grandmother Diabetes Denies family history of Ovarian cancer Prostate cancer Myocardial infarction Breast cancer Colorectal cancer Hypertension Social History Smoking Status: Never smoker Second Hand Exposure: No; Do You Dip or Chew Tobacco: No; Hx Alcohol Use: No Hx Substance Use: No Preferred Language: Kyrgyz Communication Ability: Impaired Visual Impairment: Limited Hearing Ability: Hard of Hearing Insulation Technician Required: No Beliefs That Will Affect Care: None marital status: marital status details: Spouse and son Current Living Situation: Spouse current occupational status: retired How many Children do You have: 3 Feels Safe at Home: Yes Childhood Exposure to Second-Hand Smoke: Yes Diet: regular caffeine: Yes during the past year weight has: remained stable Dental Care, Regularly: Yes Physical Activity Frequency: Does not Exercise Seatbelt Use: always Sunscreen Use: No Do you think of yourself as: straight/heterosexual Sexual Activity: has been sexually active, but not for at least 12 months Gender Identity: Female Assistive Devices: Cane, CPAP, Glasses and Walker Review of Systems Review of Systems: All systems reviewed & are unremarkable except as noted in HPI & below Physical Exam Constitutional: WD/WN, vitals as above Respiratory: normal respiratory effort, lungs clear to auscultation Cardiovascular: RRR, no murmur, no edema Gastrointestinal (Abdomen): normal bowel sounds, soft, nontender, no hepatosplenomegaly Neurologic: Patient is alert and oriented x 3, nonfocal Results & Data Vital Signs (Past 12 Hours) Vital Signs Temp Pulse Pulse Resp BP BP Pulse Ox 06/13/25 19:12 72 20 149/65 H 96 06/13/25 18:30 70 24 99 06/13/25 18:30 139/109 H 06/13/25 18:30 139/109 H 06/13/25 18:30 139/109 H 06/13/25 18:30 139/109 H 06/13/25 18:30 139/109 H 06/13/25 18:21 73 37 H 99 06/13/25 18:13 153/72 H 06/13/25 18:13 153/72 H 06/13/25 18:13 153/72 H 06/13/25 18:13 153/72 H 06/13/25 18:13 153/72 H 06/13/25 17:51 76 20 98 06/13/25 17:42 70 20 99 06/13/25 17:30 73 15 100 06/13/25 17:21 71 19 99 06/13/25 17:15 75 06/13/25 17:12 73 22 100 06/13/25 17:06 73 11 L 99 06/13/25 16:54 74 16 98 06/13/25 16:54 36.8 C 75 14 144/73 H 99 O2 Del Method O2 Flow Rate 06/13/25 19:12 Nasal Cannula 2 06/13/25 18:30 06/13/25 18:30 06/13/25 18:30 06/13/25 18:30 06/13/25 18:30 06/13/25 18:30 06/13/25 18:21 06/13/25 18:13 06/13/25 18:13 06/13/25 18:13 06/13/25 18:13 06/13/25 18:13 06/13/25 17:51 06/13/25 17:42 06/13/25 17:30 06/13/25 17:21 06/13/25 17:15 06/13/25 17:12 06/13/25 17:06 06/13/25 16:54 Room Air 06/13/25 16:54 Nasal Cannula 2 PG Care Time/CCT Total # of Minutes Spent Total Time Spent with Patient: Total time spent is greater than 50% in coordination of care (as documented) at patient's floor/unit and/or counseling patient: [place] [address] ER DEPT VISIT MOD LVL 4 Patient Type New History Expanded Problem Focused Exam Detailed Medical Decision Making Moderate Complexity Diagnoses Food impaction of esophagus, initial encounter T18.128A; W44.F3XA Encounter type: initial encounter 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 G30.1; F02.B18 Dementia type: Alzheimer's Alzheimer's disease onset: late onset Dementia severity: moderate Dementia behavioral or psychological symptom: with other behavioral disturbance Cirrhosis, nonalcoholic K74.60 Essential thrombocytopenia D69.3 Esophageal dysphagia R13.19 Dysphagia type: esophageal phase Esophageal dysmotility K22.4 (1) Food impaction of esophagus Encounter type: initial encounter Qualified Code(s): T18.128A - Food in esophagus causing other injury, initial encounter; W44.F3XA - Food entering into or through a natural orifice, initial encounter (2) Dementia Dementia type: Alzheimer's Alzheimer's disease onset: late onset Dementia severity: moderate Dementia behavioral or psychological symptom: with other behavioral disturbance Qualified Code(s): G30.1 - Alzheimer's disease with late onset; F02.B18 - Dementia in other diseases classified elsewhere, moderate, with other behavioral disturbance (5) Dysphagia Dysphagia type: esophageal phase Qualified Code(s): R13.19 - Other dysphagia
[2025-06-13] MEDS ORDERED: PROPOFOL IV EMULSION 10 MG/ML 20 ML VIAL IV ONE (21:35)
[2025-06-13] MEDS ORDERED: ONDANSETRON INJ 2 MG/ML 2 ML VIAL ONE (21:36)
[2025-06-13] MEDS ORDERED: SUCCINYLCHOLINE CHLORIDE 20 MG/ML 10 ML VIAL IV ONE (21:36)
[2025-06-13] MEDS ORDERED: DEXAMETHASONE SOD INJ 4 MG/ML VIAL ONE (21:36)
[2025-06-13] MEDS ORDERED: ATROPINE SULFATE 0.1 MG/ML 10ML SYR IV PRN (21:55)
[2025-06-13] MEDS ORDERED: ONDANSETRON INJ 2 MG/ML 2 ML VIAL IV PRN (21:55)
--- NOTE | 2025-06-13 21:55 | Anesthesiology Consultation ---
Date of Service June 13, 2025 Assessment & Plan Chart Review Chart Review: Acceptable Risk for Surgery Consults Requested none ASA ASA3E Proposed Anesthesia Anesthesia Type: General Risk / Benefits Reviewed With: PT / POA / Parent / Guardian, Accepts Plan and Informed Consent Obtained History Surgery Operation Date: 06/13/25 21:45 Proposed Procedures p EGD For Food Bolus - Anurag Shirley MD Height/Weight Height: 5 ft 4 in Weight: 69.4 kg Allergies Allergy/AdvReac Type Severity Reaction Status Date / Time Penicillins Allergy Intermediate unsure of Verified 06/13/25 19:38 reaction/been a long time latex Allergy Mild skin Verified 06/13/25 19:38 sensitive Medications Home Medications Medication Instructions Recorded Confirmed Last Taken blood sugar diagnostic (OneTouch #100 ea 05/17/24 02/28/25 11/06/24 Ultra Test strips) pen needle, diabetic 32 gauge x #200 ea 09/18/24 02/28/25 11/06/24 5/32" (BD Ultra-Fine Ricarda Pen Needle) levothyroxine 50 mcg tablet 50 mcg PO HS 12/24/24 06/13/25 06/12/25 Oxygen Home #1 ea 01/15/25 02/28/25 Unknown lancets 33 gauge (OneTouch [facility] #100 ea 04/16/25 Unknown Plus Lancet) hyoscyamine sulfate 0.125 mg 0.125 mg sublingual Q4H PRN 06/13/25 06/13/25 Unknown sublingual tablet INCREASED SECRETIONS insulin glargine 100 unit/mL (3 15 unit subcut QPM 06/13/25 06/13/25 06/12/25 mL) subcutaneous pen (Lantus Solostar U-100 Insulin) sennosides 8.6 mg-docusate sodium 1 tab PO DAILY 06/13/25 06/13/25 06/13/25 50 mg tablet (Stimulant Laxative Plus) NPO Date Last Intake of Fluids: 06/13/25 Past Medical History Medical History Delirium Fever Type 2 diabetes mellitus Essential thrombocytopenia follows with hematology. yearly CBC Edema of both legs History of COVID-19 History of esophageal dilatation Hx of fall (09/2023) Comminuted fracture of the left humeral head Hyperlipidemia Hypertension denies History of shoulder fracture (09/2023) left- (no surgery/moderate rom) Comminuted fracture of the left humeral head from a fall Arthritis mild Frequent UTI Cirrhosis, non-alcoholic Dysphagia reason for procedure Sleep apnea no device used Hypothyroidism Diabetes mellitus, type 2 Past Family History Family History Mother Diabetes Grandfather No problems noted. Grandmother Diabetes Denies family history of Ovarian cancer Prostate cancer Myocardial infarction Breast cancer Colorectal cancer Hypertension Past Surgical History Surgical History History of anesthesia reaction slow to wake up History of esophagogastroduodenoscopy (EGD) History of colonoscopy History of tooth extraction (05/29/24) all upper teeth removed week of 05/29/24 History of cataract surgery b/l Hx of cholecystectomy History of knee replacement left Social History Smoking Status: Never smoker Do You Dip or Chew Tobacco: No Hx Alcohol Use: No Hx Substance Use: No substance use type: does not use Physical Exam Vital Signs Last Vital Signs Temp 36.8 C 06/13/25 16:54 Pulse 74 06/13/25 21:33 Resp 18 06/13/25 21:33 BP 148/87 H 06/13/25 21:33 Pulse Ox 98 06/13/25 21:33 O2 Del Method Nasal Cannula 06/13/25 21:33 O2 Flow Rate 2 06/13/25 21:33 Constitutional no acute distress ENMT Mouth: + edentulous; no TMJ abnormality Thyromental Distance: < 3.5 Finger Breadths Mallampati Class: III no top teeth. no loose bottom teeth Neck normal visual inspection Respiratory normal respiratory effort Auscultation: lungs clear to auscultation bilaterally Cardiovascular Rate/Rhythm: regular rate and regular rhythm Musculoskeletal Extremities: extremities normal to inspection Neurologic moves all extremities Psychiatric Orientation: alert consent achieved from Testing Laboratory Results 06/13/25 16:57 06/13/25 17:44 PT 12.5 Seconds (9.0-12.0) H 06/13/25 16:57 INR 1.2 (0.9-1.1) H 06/13/25 16:57 Urine Color Yellow 06/13/25 19:31 Urine Appearance Clear (Clear) 06/13/25 19:31 Urine pH 7.5 (4.5-7.5) 06/13/25 19:31 Ur Specific Hext > 1.045 (1.000-1.030) H 06/13/25 19:31 Urine Protein Negative (Negative) 06/13/25 19:31 Urine Glucose (UA) Negative (Negative) 06/13/25 19: Urine Ketones 1+ (Negative) H 06/13/25 19:31 Urine Nitrite Negative (Negative) 06/13/25 19: Ur Leukocyte Esterase Negative (Negative) 06/13/25 19:31
[2025-06-13] MEDS ORDERED: PHENYLEPHRINE HCL 10 MG/ML VIAL ONE (23:44)
--- NOTE | 2025-06-14 00:26 | Anesthesiology Progress Note ---
Date of Service June 14, 2025 Anesthesia Post Procedure Vital Signs Vital Signs: Temp Pulse Pulse Resp BP BP Pulse Ox 06/14/25 00:14 35.9 C L 87 18 125/54 L 95 06/13/25 21:33 74 18 148/87 H 98 06/13/25 21:19 76 06/13/25 19:12 72 20 149/65 H 96 06/13/25 18:30 70 24 99 06/13/25 18:30 139/109 H 06/13/25 18:30 139/109 H 06/13/25 18:30 139/109 H 06/13/25 18:30 139/109 H 06/13/25 18:30 139/109 H 06/13/25 18:21 73 37 H 99 06/13/25 18:13 153/72 H 06/13/25 18:13 153/72 H 06/13/25 18:13 153/72 H 06/13/25 18:13 153/72 H 06/13/25 18:13 153/72 H 06/13/25 17:51 76 20 98 06/13/25 17:42 70 20 99 06/13/25 17:30 73 15 100 06/13/25 17:21 71 19 99 06/13/25 17:15 75 06/13/25 17:12 73 22 100 06/13/25 17:06 73 11 L 99 06/13/25 16:54 74 16 98 06/13/25 16:54 36.8 C 75 14 144/73 H 99 O2 Del Method O2 Flow Rate 06/14/25 00:14 Room Air 06/13/25 21:33 Nasal Cannula 2 06/13/25 21:19 06/13/25 19:12 Nasal Cannula 2 06/13/25 18:30 06/13/25 18:30 06/13/25 18:30 06/13/25 18:30 06/13/25 18:30 06/13/25 18:30 06/13/25 18:21 06/13/25 18:13 06/13/25 18:13 06/13/25 18:13 06/13/25 18:13 06/13/25 18:13 06/13/25 17:51 06/13/25 17:42 06/13/25 17:30 06/13/25 17:21 06/13/25 17:15 06/13/25 17:12 06/13/25 17:06 06/13/25 16:54 Room Air 06/13/25 16:54 Nasal Cannula 2 Transfer of Care Handoff Completed per policy Notes Mental Status: alert / awake / arousable Patient Amnestic to Procedure: Yes Nausea / Vomiting: adequately controlled Pain: adequately controlled Airway Patency, RR, SpO2: stable & adequate BP & HR: stable & adequate Hydration State: stable & adequate Anesthetic Complications: no major complications apparent
--- NOTE | 2025-06-14 00:31 | GI REPORT ---
[facility] Patient: EMMIE NAVARRETE : 1940 Sex at : Female Age: 85 Years Procedure: Upper GI endoscopy Date: 06/13/2025 Attending Physician: Anurag Shirley MD Referring MD: Referred Self; Yonatan Boyce Indications: - Dysphagia - Foreign body in the GI tract - Suspected achalasia - Abnormal abdominal x-ray of the GI tract Medications: - See the Anesthesia note for documentation of the administered medications Complications: - No immediate complications. Estimated Blood Loss: - Estimated blood loss was minimal. Procedure: - Prior to the procedure, a History and Physical was performed, and patient medications and allergies were reviewed. The patient's tolerance of previous anesthesia was also reviewed. The risks and benefits of the procedure and the sedation options and risks were discussed with the patient. All questions were answered, and informed consent was obtained. Prior Anticoagulants: The patient has taken no anticoagulant or antiplatelet agents. ASA Grade Assessment: 3E - A patient with severe systemic disease, undergoing an emergency procedure. After reviewing the risks and benefits, the patient was deemed in satisfactory condition to undergo the procedure. - The egd scope was introduced through the mouth and advanced to the third part of the duodenum. - The upper GI endoscopy was performed with moderate difficulty due to presence of food, stenosis and challenging esophageal intubation because of abnormal patient anatomy. Successful completion of the procedure was aided by lavage. - The patient tolerated the procedure well. Findings: - The examined duodenum was normal. - Diffuse moderately erythematous mucosa without bleeding was found in the entire examined stomach. This was biopsied with a cold forceps. - A hypertonic lower esophageal sphincter was found. There was moderate resistance to endoscope advancement into the stomach. The Z-line was regular. - Diffuse moderate mucosal changes characterized by congestion and altered texture were found in the entire esophagus. Stasis type changes typically seen in achalasia are noted diffusely. There is a focal ulceration likely from trapped food bolus of the upper esophagus. This was biopsied with a cold forceps for histology. - Food was found in the entire esophagus. Removal of food was accomplished. The extensive food bolus was removed in a piecemeal fashion using a combination of suction with lavage Rivas net and gentle advancement of some of the food into the stomach. Complete removal of all debris was performed. Impression: - Normal examined duodenum. - Erythematous mucosa in the stomach. Biopsied. - The examination was suspicious for achalasia. - Congested, texture changed mucosa in the esophagus. Biopsied. - Stasis type changes typically seen in achalasia are noted diffusely. There is a focal ulceration likely from trapped food bolus of the upper esophagus. - Food in the esophagus. Removal was successful. - The extensive food bolus was removed in a piecemeal fashion using a combination of suction with lavage Rivas net and gentle advancement of some of the food into the stomach. Complete removal of all debris was performed. Recommendation: - Await pathology results. - The patient's clinical presentation is consistent with achalasia. She is recommended to follow a pured diet indefinitely, supplementing the diet with nutrition shakes.. Treatment options for achalasia were discussed with the patient's family at length including botulinum toxin injection, pneumatic dilatation or endoscopic or surgery myotomy. - Return to GI clinic (date not yet determined). - Follow aspiration precautions. - Further treatment for achalasia to be determined based on conversation with patient and her family. - Observe overnight in light of protracted endoscopic procedure. Anticipate discharge in a.m. Procedure Code(s): - 31317, Esophagogastroduodenoscopy, flexible, transoral; with removal of foreign body(s) - 36419, Esophagogastroduodenoscopy, flexible, transoral; with biopsy, single or multiple Diagnosis Code(s): - R13.10, Dysphagia, unspecified - R93.3, Abnormal findings on diagnostic imaging of other parts of digestive tract - T18.9XXA, Foreign body of alimentary tract, part unspecified, initial encounter - K31.89, Other diseases of stomach and duodenum - K22.89, Other specified disease of esophagus - T18.128A, Food in esophagus causing other injury, initial encounter CPT(R) - 2023 copyright [employer]. All Rights Reserved. The CPT codes, CCI edits and ICD codes generated are intended as suggestions and were generated based on input data. These codes are preliminary and upon hand washer review may be revised to meet current compliance and payer requirements. The provider is responsible for the final determination of appropriate codes, and modifiers. Anurag Shirley MD This document has been electronically signed. Note Initiated:06/13/2025 Note Completed:06/14/2025 12:30 AM [id number]
[2025-06-14] MEDS ORDERED: GLUCOSE 40% GEL 15 GM TUBE PO PRN (01:22)
[2025-06-14] MEDS ORDERED: CARBOHYDRATES FOR HYPOGLYCEMIA PO PRN (01:22)
[2025-06-14] MEDS ORDERED: ONDANSETRON INJ 2 MG/ML 2 ML VIAL IV PRN (01:22)
[2025-06-14] MEDS ORDERED: GLUCAGON FOR INJ 1 MG VIAL SQ PRN (01:22)
[2025-06-14] MEDS ORDERED: DEXTROSE 50% 50 ML SYRINGE IV PRN (01:22)
[2025-06-14] MEDS ORDERED: GLUCOSE 10 TAB/TUBE PO PRN (01:22)
[2025-06-14] MEDS ORDERED: HYOSCYAMINE SULFATE 0.125 MG TAB SL PRN (01:25)
[2025-06-14] MEDS: LACTATED RINGER'S 1,000 ML IV SCH (01:28)
[2025-06-14] MEDS: INSULIN ASPART PER UNIT CHARGE SC SCH (02:02)
[2025-06-14] MEDS: LANTUS PER UNIT CHARGE SQ SCH (02:02)
[2025-06-14] MEDS: LEVOTHYROXINE SODIUM 50 MCG TABLET PO SCH (02:03)
[2025-06-14] MEDS ORDERED: Nursing to Pharmacy Communication SCH (02:15)
[2025-06-14] MEDS: PANTOprazole 40 MG/10 ML SYR IV ONE (02:28)
[2025-06-14 07:30] LABS: Hematocrit (blood only) 36.6 % (37.0-47.0); Hemoglobin 12.1 g/dL (12.0-16.0); Mean Corpuscular Hemoglobin 30.8 pg (25.0-34.0); Mean Corpuscular Volume 93.1 fL (80.0-100.0); Platelet Count 88 K/uL (130-400); RDW Standard Deviation 58.3 fL (36.4-46.3); Red Blood Count 3.93 M/uL (4.20-5.40); White Blood Count 4.76 K/ul (4.8-10.8)
[2025-06-14 08:10] LABS: Anion Gap 12.0 (3-11); Blood Urea Nitrogen 14.0 mg/dl (6-23); Calcium 8.7 mg/dl (8.6-10.3); Carbon Dioxide 23.0 mmol/L (21-32); Chloride 101.0 mmol/L (98-107); Creatinine Clr Calc Pharmacy 48.7 ml/min; Glucose 254.0 mg/dl (70-99(Fasting)); Potassium 4.4 mmol/L (3.5-5.1); Sodium 136.0 mmol/L (136-145)
[2025-06-14 11:38] VITALS: BP 113/63; PULSE 86; RESP 18; TEMP 98.1; O2SAT 99
--- NOTE | 2025-06-14 11:51 | Electrocardiogram Report ---
Test Reason : Blood Pressure : */* mmHG Vent. Rate : 77 BPM Atrial Rate : 77 BPM P-R Int : 140 ms QRS Dur : 74 ms QT Int : 448 ms P-R-T Axes : -20 -81 39 degrees QTcB Int : 506 ms Normal sinus rhythm Incomplete right bundle branch block Abnormal ECG When compared with ECG of 28-Feb-2025 22:19, Right bundle branch block is no longer Present Confirmed by Talib Lamb ([id number]) on 06/14/2025 11:51:15 AM Referred By: REFERRED SELF Confirmed By: Talib Lamb
--- NOTE | 2025-06-14 15:40 | Discharge Summary ---
Discharge Summary Date of Service June 14, 2025 Principal Dx & Hospital Course #1 = Principal Diagnosis (1) Food impaction of esophagus: (2) Type 2 diabetes mellitus: Plan 85-year-old female PMHx hypothyroidism, HLD, essential thrombocytopenia, nonalcoholic cirrhosis, history of falls, SHARRON, gait instability, dementia, and T2DM presenting for increased oral secretions and midsternal chest discomfort. Evaluation is of mild leukopenia 3.85 and thrombocytopenia 83 which is not abnormal for her. Glucose slightly elevated 146, bilirubin 1.5 and AST 41, without abdominal pain. Her troponin is normal and EKG is without ischemic changes. Imaging supports presence of food material in esophagus. Admission for such, possibly to OR night of 06/13/2025. #Esophageal food impaction EGD disimpacted the food, and showed findings quite consistent with achalasia. This was discussed with last night, I reiterated discussions today. Patient feels better. Patient and would very much like for her to go home. Discussed follow-upshusband would like to minimize things if at all possible with her being on hospiceand for now it seems reasonable to try pured diet and upright positioning during and after eating with GI follow-up and/or dietitian follow-up if necessary/if not doing well. #T2DM Home on home regimenlow threshold to DC #thrombocytopenia #ADAN #Dementia #Hypothyroidism- TSH 12/2024 @ 1.416; Levothyroxine - continue safe/stable for home with on hospice. Notes For Next Care Provider Medication Changes From Visit added protonix 40mg po bid Admission HPI Per Admitting Provider 85-year-old female PMHx hypothyroidism, HLD, essential thrombocytopenia, nonalcoholic cirrhosis, history of falls, SHARRON, gait instability, dementia, and T2DM presenting for increased oral secretions and midsternal chest discomfort. Patient's and daughter in room at time of visit and provide history. Reports that the night [employer] the patient had dinner (meatballs) and started to spit up after eating which is not abnormal for her, but it lasted longer than normal. Normally whenever she eats, she has episodes of spitting up clear mucus last approximately 30 minutes and then it resolves itself. She does sometimes take hyoscyamine for secretions but did not at this time. She continued to spit up mucus for multiple hours after eating which was abnormal for her. states that the day of arrival the patient did have breakfast, she continued to spit up and has been since. She did not have lunch or dinner. She is having some substernal chest discomfort, feels gnawing in nature, but does not radiate or presents of any rest. She is without SOB, palpitations, or wheezing. No nausea or vomiting. Abdomen is without pain. She does not want to stay in the hospital but she would like to go home for Thanksgiving as to spent time with her family. Denies F/C, URI symptoms, LUTS, numbness/tingling, weakness, syncope, or falls. Again, she is without respiratory symptoms. ED evaluation CBC with leukopenia 3.85, H&H stable, platelets 83; PT/INR pending; CMP glucose 146, total bilirubin 1.5, AST 41, BUN 3.3; troponin 8.7; UA negative for infection; chest CTA no PE, severe abnormal dilatation entire thoracic lower cervical esophagus, but food material and air-fluid level present, large hiatal hernia, possible obstructing lesion of esophagus or severe peristalsis disorder; CTAP possible circular filling defect herniated portion of stomach above diagram (definitive evaluation with endoscopy), splenomegaly, nodular contour liver suggesting possible cirrhosis, mildly enlarged fibroid uterus; EKG sinus, with pulmonary disease pattern. Please see Dr. Roman's attestation for adjustments/additions to treatment plan. Discharge Exam Awake and alert pleasant no distress. Breathing unlabored no accessory muscle use good effort. Skin without rashes pallor or icterus. Updated Medication List Medication Instructions Recorded Confirmed Type blood sugar diagnostic (Metagouch #100 ea 05/17/24 02/28/25 Rx Ultra Test strips) pen needle, diabetic 32 gauge x #200 ea 09/18/24 02/28/25 Rx 5/32" (BD Ultra-Fine Ricarda Pen Needle) levothyroxine 50 mcg tablet 50 mcg PO HS 12/24/24 06/13/25 History Oxygen Home #1 ea 01/15/25 02/28/25 Rx lancets 33 gauge (Smaato Delica #100 ea 04/16/25 Rx Plus Lancet) hyoscyamine sulfate 0.125 mg 0.125 mg sublingual Q4H PRN 06/13/25 06/13/25 History sublingual tablet INCREASED SECRETIONS insulin glargine 100 unit/mL (3 15 unit subcut QPM 06/13/25 06/13/25 History mL) subcutaneous pen (Lantus Solostar U-100 Insulin) sennosides 8.6 mg-docusate sodium 1 tab PO DAILY 06/13/25 06/13/25 History 50 mg tablet (Stimulant Laxative Plus) pantoprazole 40 mg tablet,delayed 40 mg PO BID #60 tabs 06/14/25 Rx release Hospital Stay Data Consultations 06/13/25 19:27 ED Decision to Admit Stat 06/14/25 01:22 Consult Gastroenterology Routine Procedures Performed Operation Date: 06/13/25 21:45 Actual Procedures p Esophagogastroduodenoscopy For Food Bolus(Not Applicable) - Anurag Shirley MD Diagnostic Imagining Performed 06/13/25 16:54 CT angio chest PE protocol Stat 06/13/25 16:55 CT abd pelvis IV con only Stat Pending Results Patient Have Any Pending Studies at Discharge: No Discharge Instructions Given to Patient (Per Discharging Provider) achalasia - -the way i tend to describe achalasia is that normally our esophagus is a muscular tube that helps propel food down into our stomach. with achalsia, it's more like a "lead pipe" that doesn't really squeeze. add to it that your esophagus is somewhat tight at the bottom and it's behaving more like a "passive funnel" - because of this, then food got stuck at the bottom of the funnel and then everything started to back up from there, until your esophagus was full and causing discomfort -the mainstays for preventing the food bolus/impaction from happening again are: (a) to eat pureed foods/slippery foods (run things through the load checker, or if it's food like mashed potatoes that already are a soft consistency. adding gravy/sauce also helps things go down easier), and (b) to let gravity help the food get to where it needs to go - stay upright (ideally 90 degrees) while eating and ideally for about 45 minutes after -we'll also add protonix as a medication to suppress acid -this won't really fix the "lead pipe/funnel" problem, but by reducing acid that can backwash into your esophagus, we can maybe make things slower as far as the esophagus getting tight er from acid induced scarring, and also can hopefully help reduce discomfort Total Time Total Time Spent Total Time Spent (In Minutes): <30
--- NOTE | 2025-06-14 15:40 | Billing Data ---
Date of Service June 14, 2025 Coding Level of Care Code 31710 IN/OBS DISCH 30 MIN/LESS
[2025-06-15] MEDS ORDERED: PANTOprazole 40 MG/10 ML SYR IV SCH (09:00)
== END 2025-06-14 15:26 | disposition hospice, home (50) ==
LOC: ED 16:44 → 3N 21:35 → OR 21:35 → SUATTDRO 21:36